=== PATIENT | male | born 1970 | race Caucasian/White ===

== ENCOUNTER 2016-02-21 15:08 | Emergency (ER) | payer BC ==
[2016-02-21 15:17] VITALS: RESP 18
--- NOTE | 2016-02-21 15:41 | ED ---
General Adult HPI - General Chief complaint: Back Pain/Injury Stated complaint: Shoulder/Back Pain Time Seen by Provider: 02/21/16 15:21 Source: patient, RN notes reviewed Mode of arrival: ambulatory Limitations: no limitations - History of Present Illness Initial comments: 46-year-old male presents emergency Department chief complaint right shoulder, back pain. Patient states this started yesterday. Patient states that is progressively gotten worse. Patient states that the chiropractor which initially helped with is not getting worse. Patient states his when he turns away from the right side. Patient states is unsure as he slipped on the lawn when he did. Patient states she is concerned as he has a history of V. tach in which she's had a defibrillator placed. 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 He shouldn't denies any chest pain, shortness breath, nausea, vomiting and diaphoretic episodes. Patient states he takes 81 mg aspirin daily. Patient states he has a family history of heart disease. - Related Data Home Medications Medication Instructions Recorded Confirmed Aspirin EC [Ecotrin Low Dose] 81 mg PO DAILY 02/21/16 02/21/16 Metoprolol Succinate (ER) [Toprol 100 mg PO DAILY 02/21/16 02/21/16 Xl] Allergies Allergy/AdvReac Type Severity Reaction Status Date / Time No Known Allergies Allergy Verified 02/21/16 15:31 Review of Systems ROS Statement: Those systems with pertinent positive or pertinent negative responses have been documented in the HPI. ROS Other: All systems not noted in ROS Statement are negative. Past Medical History Past Medical History: Hypertension History of Any Multi-Drug Resistant Organisms: None Reported Past Surgical History: No Surgical Hx Reported Additional Past Surgical History / Comment(s): ICD implant Past Psychological History: Anxiety Smoking Status: Never smoker Past Alcohol Use History: Rare Past Drug Use History: None Reported General Exam Limitations: no limitations General appearance: alert, in no apparent distress Head exam: Present: atraumatic, normocephalic, normal inspection ENT exam: Present: normal exam, normal oropharynx, mucous membranes moist, TM's normal bilaterally, normal external ear exam Neck exam: Present: normal inspection, tenderness (Moderate tenderness of the right trapezius), full ROM (Moderate discomfort when turning to the left). Absent: meningismus, lymphadenopathy Respiratory exam: Present: normal lung sounds bilaterally. Absent: respiratory distress, wheezes, rales, rhonchi, stridor Cardiovascular Exam: Present: regular rate, normal rhythm, normal heart sounds. Absent: systolic murmur, diastolic murmur, rubs, gallop, clicks Extremities exam: Present: normal inspection, full ROM, normal capillary refill. Absent: tenderness, pedal edema, joint swelling, calf tenderness Back exam: Present: full ROM Skin exam: Present: warm, dry, intact, normal color. Absent: rash Course Vital Signs 02/21/16 15:10 Temperature 99.1 F Pulse Rate 69 Respiratory 18 Rate Blood Pressure 165/91 O2 Sat by Pulse 99 Oximetry EKG Findings - EKG Comments: EKG Findings:: EKG performed at 15:32 normal sinus rhythm with a rate of 70, RI interval 146, QRS duration 80, QT/QTC 390/421 Medical Decision Making - Medical Decision Making 46-year-old male been for right trapezius pain. Patient lab work, EKG and chest x-ray with normal is. Patient's pain is muscle skeletal in nature. Patient will be discharged with heat, ice, anti-inflammatories. Patient was offered muscle relaxers and which she declined. - Lab Data Result diagrams: 02/21/16 15:52 02/21/16 15:52 Lab Results 02/21/16 02/21/16 02/21/16 Range/Units 15:52 15:52 15:52 WBC 6.3 (3.8-10.6) k/uL RBC 5.13 (4.30-5.90) m/uL Hgb 16.1 (13.0-17.5) gm/dL Hct 47.0 (39.0-53.0) % MCV 91.7 (80.0-100.0) fL MCH 31.3 (25.0-35.0) pg MCHC 34.2 (31.0-37.0) g/dL RDW 12.7 (11.5-15.5) % Plt Count 185 (150-450) k/uL Neutrophils % 64 % Lymphocytes % 24 % Monocytes % 7 % Eosinophils % 3 % Basophils % 0 % Neutrophils # 4.0 (1.3-7.7) k/uL Lymphocytes # 1.5 (1.0-4.8) k/uL Monocytes # 0.4 (0-1.0) k/uL Eosinophils # 0.2 (0-0.7) k/uL Basophils # 0.0 (0-0.2) k/uL PT (9.0-12.0) sec INR (<1.1) APTT (22.0-30.0) sec Sodium 141 (137-145) mmol/L Potassium 4.4 (3.5-5.1) mmol/L Chloride 108 H (98-107) mmol/L Carbon Dioxide 21 L (22-30) mmol/L Anion Gap 12 mmol/L BUN 16 (9-20) mg/dL Creatinine 0.50 L (0.66-1.25) mg/dL Est GFR (MDRD) Af Amer >60 (>60 ml/min/1.73 sqM) Est GFR (MDRD) Non-Af >60 (>60 ml/min/1.73 sqM) Glucose 139 H (74-99) mg/dL Calcium 9.4 (8.4-10.2) mg/dL Magnesium 1.7 (1.6-2.3) mg/dL Total Bilirubin 1.3 (0.2-1.3) mg/dL AST 73 H (17-59) U/L ALT 91 H (21-72) U/L Alkaline Phosphatase 55 (38-126) U/L Total Creatine Kinase 151 (55-170) U/L CK-MB (CK-2) 1.5 (0.0-2.4) ng/mL CK-MB (CK-2) Rel Index 1.0 Troponin I <0.012 (0.000-0.034) ng/mL Total Protein 7.3 (6.3-8.2) g/dL Albumin 4.4 (3.5-5.0) g/dL 02/21/16 Range/Units 15:52 WBC (3.8-10.6) k/uL RBC (4.30-5.90) m/uL Hgb (13.0-17.5) gm/dL Hct (39.0-53.0) % MCV (80.0-100.0) fL MCH (25.0-35.0) pg MCHC (31.0-37.0) g/dL RDW (11.5-15.5) % Plt Count (150-450) k/uL Neutrophils % % Lymphocytes % % Monocytes % % Eosinophils % % Basophils % % Neutrophils # (1.3-7.7) k/uL Lymphocytes # (1.0-4.8) k/uL Monocytes # (0-1.0) k/uL Eosinophils # (0-0.7) k/uL Basophils # (0-0.2) k/uL PT 11.6 (9.0-12.0) sec INR 1.2 (<1.1) APTT 25.3 (22.0-30.0) sec Sodium (137-145) mmol/L Potassium (3.5-5.1) mmol/L Chloride (98-107) mmol/L Carbon Dioxide (22-30) mmol/L Anion Gap mmol/L BUN (9-20) mg/dL Creatinine (0.66-1.25) mg/dL Est GFR (MDRD) Af Amer (>60 ml/min/1.73 sqM) Est GFR (MDRD) Non-Af (>60 ml/min/1.73 sqM) Glucose (74-99) mg/dL Calcium (8.4-10.2) mg/dL Magnesium (1.6-2.3) mg/dL Total Bilirubin (0.2-1.3) mg/dL AST (17-59) U/L ALT (21-72) U/L Alkaline Phosphatase (38-126) U/L Total Creatine Kinase (55-170) U/L CK-MB (CK-2) (0.0-2.4) ng/mL CK-MB (CK-2) Rel Index Troponin I (0.000-0.034) ng/mL Total Protein (6.3-8.2) g/dL Albumin (3.5-5.0) g/dL Disposition Clinical Impression: Trapezius muscle spasm, Strain of right trapezius muscle Disposition: HOME SELF-CARE Condition: Stable Instructions: Spasmodic Torticollis (ED) Additional Instructions: Please return to the Emergency Department if symptoms worsen or any other concerns. Time of Disposition: 16:57
[2016-02-21 16:02] LABS: Basophils % (A) 0 %; CH 32.2; CHCM 35.2; Eosinophils # (A) 0.2 k/uL (0-0.7); Eosinophils % (A) 3 %; HDW 2.57; HGB 16.1 gm/dL (13.0-17.5); Luc # (Auto) 0.18; Luc % (Auto) 3; Lymphocytes # (A) 1.5 k/uL (1.0-4.8); Lymphocytes % (A) 24 %; MCH 31.3 pg (25.0-35.0); MCHC 34.2 g/dL (31.0-37.0); MCV 91.7 fL (80.0-100.0); Mean Platelet Volume 6.9; Monocytes # (A) 0.4 k/uL (0-1.0); Monocytes % (A) 7 %; Neutrophils % (A) 64 %; RBC 5.13 m/uL (4.30-5.90); RDW 12.7 % (11.5-15.5); WBC 6.3 k/uL (3.8-10.6); WBC (Perox) 6.44
--- NOTE | 2016-02-21 16:07 | XR ---
EXAMINATION TYPE: XR chest 2V DATE OF EXAM: 02/21/2016 4:00 PM COMPARISON: 12/15/2014 HISTORY: Chest pain FINDINGS: The lungs are clear and there is no pneumothorax, pleural effusion, or focal pneumonia. Cardiac dev ice noted. The heart is enlarged. No overt failure. IMPRESSION: 1. No acute process.
[2016-02-21 16:10] LABS: INR 1.2 (<1.1); Partial Thromboplastin Time 25.3 sec (22.0-30.0); Prothrombin Time 11.6 sec (9.0-12.0)
[2016-02-21 16:16] LABS: ALT 91 U/L (21-72); AST 73 U/L (17-59); Alkaline Phosphatase 55 U/L (38-126); Anion Gap 12 mmol/L; Blood Urea Nitrogen 16 mg/dL (9-20); Calcium 9.4 mg/dL (8.4-10.2); Carbon Dioxide 21 mmol/L (22-30); Chloride 108 mmol/L (98-107); Glucose 139 mg/dL (74-99); Magnesium 1.7 mg/dL (1.6-2.3); Non-African American GFR(MDRD) >60 (>60 ml/min/1.73 sqM); Potassium 4.4 mmol/L (3.5-5.1); Sodium 141 mmol/L (137-145); Total Bilirubin 1.3 mg/dL (0.2-1.3); Total Protein 7.3 g/dL (6.3-8.2)
[2016-02-21 16:25] LABS: Creatine Kinase 151 U/L (55-170)
[2016-02-21 16:37] LABS: Creatine Kinase MB 1.5 ng/mL (0.0-2.4); Troponin I <0.012 ng/mL (0.000-0.034)
[2016-02-21 17:19] VITALS: BP 131/71; PULSE 58; TEMP 98
== END 2016-02-21 17:19 | disposition home or self-care (01) ==
LOC: EC 15:08
DX: S29.012A Strain of muscle and tendon of back wall of thorax, initial encounter (principal); I10 Essential (primary) hypertension; Z79.82 Long term (current) use of aspirin; Z82.49 Family history of ischemic heart disease and other diseases of the circulatory system; Z79.899 Other long term (current) drug therapy; Z95.810 Presence of automatic (implantable) cardiac defibrillator; X58.XXXA Exposure to other specified factors, initial encounter
CPT/HCPCS: 36415; 71020; 80053; 82550; 82553; 83735; 84484; 85025; 85610; 85730; 93005; 99284

== ENCOUNTER 2016-05-17 22:39 | Inpatient (IN) | payer BC ==
[2016-05-17] MEDS ORDERED: ENOXAPARIN 150 MG/ML SYRINGE SQ STA (23:10)
[2016-05-17] MEDS ORDERED: ASPIRIN 81 MG CHEW PO STA (23:10)
[2016-05-17 23:33] LABS: Basophils # (A) 0.1 k/uL (0-0.2); Basophils % (A) 1 %; CH 31.4; CHCM 34.9; Eosinophils # (A) 0.2 k/uL (0-0.7); Eosinophils % (A) 2 %; HCT 46.6 % (39.0-53.0); HDW 2.67; HGB 15.8 gm/dL (13.0-17.5); Luc % (Auto) 2; Lymphocytes # (A) 2.4 k/uL (1.0-4.8); Lymphocytes % (A) 28 %; MCH 30.7 pg (25.0-35.0); MCHC 33.9 g/dL (31.0-37.0); MCV 90.5 fL (80.0-100.0); Mean Platelet Volume 7.7; Monocytes # (A) 0.7 k/uL (0-1.0); Monocytes % (A) 8 %; Neutrophils # (A) 5.3 k/uL (1.3-7.7); Neutrophils % (A) 60 %; RBC 5.15 m/uL (4.30-5.90); RDW 12.1 % (11.5-15.5); WBC 8.8 k/uL (3.8-10.6); WBC (Perox) 8.85
[2016-05-17] MEDS ORDERED: DEXTROSE 5% IN WATER 100 ML with AMIODARONE 150 MG IV ONE (23:40)
[2016-05-17 23:42] LABS: ALT 59 U/L (21-72); AST 36 U/L (17-59); Alkaline Phosphatase 60 U/L (38-126); Anion Gap 12 mmol/L; Blood Urea Nitrogen 12 mg/dL (9-20); Calcium 9.6 mg/dL (8.4-10.2); Carbon Dioxide 26 mmol/L (22-30); Chloride 100 mmol/L (98-107); Glucose 307 mg/dL (74-99); Magnesium 1.8 mg/dL (1.6-2.3); Non-African American GFR(MDRD) >60 (>60 ml/min/1.73 sqM); Potassium 3.8 mmol/L (3.5-5.1); Sodium 138 mmol/L (137-145); Total Bilirubin 0.7 mg/dL (0.2-1.3); Total Protein 7.3 g/dL (6.3-8.2)
[2016-05-17 23:51] LABS: INR 1.1 (<1.1); Partial Thromboplastin Time 25.5 sec (22.0-30.0); Prothrombin Time 11.2 sec (9.0-12.0)
--- NOTE | 2016-05-17 23:52 | XR ---
EXAM: XR Chest, 1 View. CLINICAL HISTORY: Reason: dysrhythmia TECHNIQUE: Frontal view of the chest. COMPARISON: Chest radiograph on 02/21/2016 FINDINGS: Hardware: Left-sided pacemaker/AICD. Lungs/pleura: Mildly low lung volumes with left basilar atelectasis. No focal consolidation. No pleural effusion or pneumothorax. Heart/mediastinum: Stable mild cardiomegaly. Soft tissues: Unremarkable. Bones: Degenerative changes of the spine. No acute fracture. Upper abdomen: Unremarkable. IMPRESSION: Mildly low lung volumes with left basilar atelectasis. No acute disease.
[2016-05-18 00:07] LABS: Creatine Kinase MB 1.2 ng/mL (0.0-2.4); Troponin I 0.013 ng/mL (0.000-0.034)
[2016-05-18] MEDS ORDERED: NITROGLYCERIN SL TABS 0.4 MG TAB SUBLINGUAL PRN (00:40)
[2016-05-18] MEDS ORDERED: ALPRAZolam 0.25 MG TAB PO PRN (00:44)
[2016-05-18] MEDS ORDERED: MAGNESIUM SULFATE-D5W PMX 1 GM in DEXTROSE/WATER 1 100ML.BAG IVPB ONE (01:05)
[2016-05-18] MEDS ORDERED: POTASSIUM CHLORIDE ER 20 MEQ TAB.ER PO STA (01:05)
--- NOTE | 2016-05-18 01:06 | ED ---
Arrhythmia/Palpitations HPI - General Chief Complaint: Arrhythmia/Palpitations Stated Complaint: Heart Arrythmia Time Seen by Provider: 05/17/16 23:09 Source: patient Mode of arrival: ambulatory Limitations: no limitations - History of Present Illness Initial Comments: This patient is a 46-year-old man who presents to be evaluated for what he suspects are periods of ventricular tachycardia. The patient states that he does have a history of sustained ventricular tachycardia. He states it was discovered on nearly 2 years ago when he was having a stress test, and at the end of the test he entered sustained ventricular tachycardia. He subsequently had an AICD placed. The patient notes that over the past day or so he has been having more PVCs then he usually has. And then throughout the day he was having periods when he would feel short of breath and noted that his pulse was fast and he suspected he was in V. tach. These periods were short however they started recurring and he came to the emergency department to be evaluated. While here he use the bathroom in the waiting room and noted that he was extremely lightheaded like he was going to pass out and then his defibrillator discharged. Patient denies chest pain, diaphoresis, vomiting. MD Complaint: rapid heart beat, irregular heart beat -: hour(s) Context: occurred during rest Arrhythmia History: AICD Associated Symptoms: near-syncope - Related Data Home Medications Medication Instructions Recorded Confirmed Aspirin EC [Ecotrin Low Dose] 81 mg PO DAILY 02/21/16 05/17/16 Metoprolol Succinate (ER) [Toprol 100 mg PO DAILY 02/21/16 05/17/16 Xl] ALPRAZolam [Alprazolam] 0.25 mg PO TID PRN 05/17/16 05/17/16 Cefdinir [Omnicef] 600 mg PO DAILY 05/17/16 05/17/16 Ibuprofen [Advil] 400 mg PO Q6HR PRN 05/17/16 05/17/16 Allergies Allergy/AdvReac Type Severity Reaction Status Date / Time No Known Allergies Allergy Verified 05/17/16 23:14 Review of Systems ROS Statement: Those systems with pertinent positive or pertinent negative responses have been documented in the HPI. ROS Other: All systems not noted in ROS Statement are negative. Constitutional: Reports: weakness. Denies: fever, chills Respiratory: Reports: dyspnea. Denies: cough, wheezes, hemoptysis Cardiovascular: Reports: palpitations. Denies: chest pain, orthopnea, edema, syncope Gastrointestinal: Denies: abdominal pain, nausea, vomiting Genitourinary: Denies: dysuria, hematuria Musculoskeletal: Denies: back pain Skin: Denies: rash Neurological: Reports: weakness. Denies: headache, numbness Psychiatric: Reports: anxiety Past Medical History Past Medical History: Hypertension Additional Past Medical History / Comment(s): hypertrophic cardiomyopathy History of Any Multi-Drug Resistant Organisms: None Reported Past Surgical History: AICD Additional Past Surgical History / Comment(s): ICD implant Past Psychological History: Anxiety Smoking Status: Never smoker Past Alcohol Use History: Rare Past Drug Use History: None Reported - Past Family History Father Family Medical History: Cancer, Coronary Artery Disease (CAD), Hyperlipidemia, Myocardial Infarction ([place]) Additional Family Medical History / Comment(s): lymphoma Mother Family Medical History: Pulmonary Embolus, Renal Disease Brother(s) Family Medical History: Myocardial Infarction ([place]) General Exam Limitations: no limitations General appearance: alert, in no apparent distress, obese Head exam: Present: atraumatic, normocephalic Eye exam: Present: normal appearance. Absent: scleral icterus, conjunctival injection ENT exam: Present: normal oropharynx Neck exam: Present: normal inspection Respiratory exam: Present: normal lung sounds bilaterally. Absent: respiratory distress, wheezes, rales, rhonchi, stridor Cardiovascular Exam: Present: regular rate, normal rhythm, normal heart sounds. Absent: systolic murmur, diastolic murmur, rubs, gallop GI/Abdominal exam: Present: soft. Absent: distended, tenderness, guarding, rebound, rigid Extremities exam: Present: normal inspection, normal capillary refill. Absent: pedal edema, calf tenderness Back exam: Present: normal inspection. Absent: CVA tenderness (R), CVA tenderness (L) Neurological exam: Present: alert Skin exam: Present: warm, dry, intact, normal color. Absent: rash Course Vital Signs 05/17/16 05/17/16 05/18/16 22:50 23:06 00:06 Temperature 98.7 F 98 F 98 F Pulse Rate 85 80 84 Pulse Rate [ Real Estate Legal Secretary ] Respiratory 20 20 18 Rate Blood Pressure 159/80 159/75 151/70 Blood Pressure [Left Arm] O2 Sat by Pulse 98 98 99 Oximetry 04/01/17 04/01/17 04/01/17 00:07 00:42 01:14 Temperature 98 F 98.3 F Pulse Rate 80 Pulse Rate [ 80 75 Real Estate Legal Secretary ] Respiratory 18 12 Rate Blood Pressure 140/70 Blood Pressure 156/70 [Left Arm] O2 Sat by Pulse 97 97 Oximetry 05/18/16 01:30 Temperature 98.5 F Pulse Rate 82 Pulse Rate [ Real Estate Legal Secretary ] Respiratory 18 Rate Blood Pressure 142/74 Blood Pressure [Left Arm] O2 Sat by Pulse 97 Oximetry EKG Findings - EKG Results: EKG: interpreted by ANTHONY SALINAS, sinus rhythm (Rate 93 bpm), normal axis, normal QRS, normal ST/T, no acute changes Medical Decision Making - Medical Decision Making While in the emergency department, the patient's monitor showed to short intervals of V. tach approximately 5-6 beats each. Given that and the patient' s defibrillator discharge he was started on amiodarone. I discussed the patient 's case with cardiology and there treatment recommendations are incorporated. Remainder the patient's labs do show a borderline magnesium and potassium and these were supplemented. The patient did have no further episodes of arrhythmia while in the emergency department. - Lab Data Result diagrams: 05/18/16 04:57 05/18/16 04:57 Lab Results 05/17/16 05/17/16 05/17/16 Range/Units 23:04 23:04 23:04 WBC 8.8 (3.8-10.6) k/uL RBC 5.15 (4.30-5.90) m/uL Hgb 15.8 (13.0-17.5) gm/dL Hct 46.6 (39.0-53.0) % MCV 90.5 (80.0-100.0) fL MCH 30.7 (25.0-35.0) pg MCHC 33.9 (31.0-37.0) g/dL RDW 12.1 (11.5-15.5) % Plt Count 219 (150-450) k/uL Neutrophils % 60 % Lymphocytes % 28 % Monocytes % 8 % Eosinophils % 2 % Basophils % 1 % Neutrophils # 5.3 (1.3-7.7) k/uL Lymphocytes # 2.4 (1.0-4.8) k/uL Monocytes # 0.7 (0-1.0) k/uL Eosinophils # 0.2 (0-0.7) k/uL Basophils # 0.1 (0-0.2) k/uL PT (9.0-12.0) sec INR (<1.1) APTT (22.0-30.0) sec Sodium 138 (137-145) mmol/L Potassium 3.8 (3.5-5.1) mmol/L Chloride 100 (98-107) mmol/L Carbon Dioxide 26 (22-30) mmol/L Anion Gap 12 mmol/L BUN 12 (9-20) mg/dL Creatinine 0.59 L (0.66-1.25) mg/dL Est GFR (MDRD) Af Amer >60 (>60 ml/min/1.73 sqM) Est GFR (MDRD) Non-Af >60 (>60 ml/min/1.73 sqM) Glucose 307 H (74-99) mg/dL Calcium 9.6 (8.4-10.2) mg/dL Magnesium 1.8 (1.6-2.3) mg/dL Total Bilirubin 0.7 (0.2-1.3) mg/dL AST 36 (17-59) U/L ALT 59 (21-72) U/L Alkaline Phosphatase 60 (38-126) U/L Total Creatine Kinase 136 (55-170) U/L CK-MB (CK-2) 1.2 (0.0-2.4) ng/mL CK-MB (CK-2) Rel Index 0.9 Troponin I 0.013 (0.000-0.034) ng/mL Total Protein 7.3 (6.3-8.2) g/dL Albumin 4.2 (3.5-5.0) g/dL 05/17/16 Range/Units 23:04 WBC (3.8-10.6) k/uL RBC (4.30-5.90) m/uL Hgb (13.0-17.5) gm/dL Hct (39.0-53.0) % MCV (80.0-100.0) fL MCH (25.0-35.0) pg MCHC (31.0-37.0) g/dL RDW (11.5-15.5) % Plt Count (150-450) k/uL Neutrophils % % Lymphocytes % % Monocytes % % Eosinophils % % Basophils % % Neutrophils # (1.3-7.7) k/uL Lymphocytes # (1.0-4.8) k/uL Monocytes # (0-1.0) k/uL Eosinophils # (0-0.7) k/uL Basophils # (0-0.2) k/uL PT 11.2 (9.0-12.0) sec INR 1.1 (<1.1) APTT 25.5 (22.0-30.0) sec Sodium (137-145) mmol/L Potassium (3.5-5.1) mmol/L Chloride (98-107) mmol/L Carbon Dioxide (22-30) mmol/L Anion Gap mmol/L BUN (9-20) mg/dL Creatinine (0.66-1.25) mg/dL Est GFR (MDRD) Af Amer (>60 ml/min/1.73 sqM) Est GFR (MDRD) Non-Af (>60 ml/min/1.73 sqM) Glucose (74-99) mg/dL Calcium (8.4-10.2) mg/dL Magnesium (1.6-2.3) mg/dL Total Bilirubin (0.2-1.3) mg/dL AST (17-59) U/L ALT (21-72) U/L Alkaline Phosphatase (38-126) U/L Total Creatine Kinase (55-170) U/L CK-MB (CK-2) (0.0-2.4) ng/mL CK-MB (CK-2) Rel Index Troponin I (0.000-0.034) ng/mL Total Protein (6.3-8.2) g/dL Albumin (3.5-5.0) g/dL Critical Care Time Critical Care Time: Yes (35 minutes) Disposition Clinical Impression: Ventricular tachycardia, Defibrillator discharge Disposition: ADMITTED IP TO THIS [facility] Condition: Fair
[2016-05-18] MEDS ORDERED: INSULIN REGULAR 100 UNIT/ML VIAL SQ STA (01:07)
[2016-05-18 01:38] LABS: Glucose,Whole Blood 326 mg/dL (75-99)
[2016-05-18 02:08] VITALS: BMI 41.9
[2016-05-18] MEDS: AMIODARONE 450 MG in DEXTROSE 5% IN WATER 250 ML IV SCH ×8 (03:00→21:24)
[2016-05-18] MEDS ORDERED: DEXTROSE 5% IN WATER 100 ML with AMIODARONE 150 MG IV ONE (03:06)
[2016-05-18] MEDS ORDERED: LIDOCAINE 2% SYG (PF) 100 MG/5 ML ONE (03:20)
[2016-05-18] MEDS ORDERED: LIDOCAINE 2% SYG (PF) 100 MG/5 ML IV ONE (03:23)
[2016-05-18] MEDS ORDERED: METOPROLOL TARTRATE 50 MG TAB PO STA (03:24)
[2016-05-18] MEDS ORDERED: LIDOCAINE-D5W PMX 2G/500ML 4 MG/ML IV ONE (03:31)
[2016-05-18] MEDS: LIDOCAINE-D5W PMX 2G/500ML 2,000 MG in DEXTROSE/WATER 1 500ML.BAG IV SCH ×2 (03:34→21:57)
[2016-05-18 05:17] LABS: CH 31.3; CHCM 34.7; HCT 43.6 % (39.0-53.0); HDW 2.67; HGB 14.9 gm/dL (13.0-17.5); MCHC 34.2 g/dL (31.0-37.0); MCV 90.6 fL (80.0-100.0); RBC 4.81 m/uL (4.30-5.90); RDW 12.2 % (11.5-15.5); WBC 8.1 k/uL (3.8-10.6)
[2016-05-18 05:29] LABS: Anion Gap 11 mmol/L; Blood Urea Nitrogen 9 mg/dL (9-20); Calcium 9.1 mg/dL (8.4-10.2); Carbon Dioxide 21 mmol/L (22-30); Chloride 104 mmol/L (98-107); Glucose 266 mg/dL (74-99); Magnesium 1.9 mg/dL (1.6-2.3); Non-African American GFR(MDRD) >60 (>60 ml/min/1.73 sqM); Phosphorous 2.8 mg/dL (2.5-4.5); Potassium 4.8 mmol/L (3.5-5.1); Sodium 136 mmol/L (137-145)
[2016-05-18 05:48] LABS: Creatine Kinase MB 1.3 ng/mL (0.0-2.4); Troponin I 0.025 ng/mL (0.000-0.034)
[2016-05-18] MEDS ORDERED: Magnesium Replacement Protocol 1 EACH MISC MISCELLANE PRN (07:38)
[2016-05-18] MEDS: MAGNESIUM SULFATE-D5W PMX 1 GM in DEXTROSE/WATER 1 100ML.BAG IVPB SCH ×2 (07:47→08:55)
[2016-05-18] MEDS: INSULIN LISPRO (humaLOG) 300 UNIT/3 ML VIAL SQ SCH ×4 (07:48→20:33)
[2016-05-18] MEDS ORDERED: METOPROLOL SUCCINATE (ER) 100 MG TAB.ER.24H PO SCH (09:00)
[2016-05-18] MEDS ORDERED: NON-FORMULARY DRUG (Aspirin Ec 81 MG) PO SCH (09:00)
[2016-05-18 11:42] LABS: Creatine Kinase MB 1.2 ng/mL (0.0-2.4); Troponin I 0.015 ng/mL (0.000-0.034)
--- NOTE | 2016-05-18 12:22 | CONS ---
DATE OF CONSULTATION: Mr. Moura is a 46-year-old male with a history of ventricle arrhythmia and ventricular tachycardia status post ICD implantation done in January 2015 at [facility]. At that time apparently he had a stress test and toward the end of the stress test he had a run of ventricular tachycardia, underwent further workup and from what he was told there was evidence of septal hypertrophy and underwent an ICD implantation. The patient has occasional palpitation, has been maintained on a beta michell and has done reasonably well from the cardiac standpoint up to yesterday when he started to feel increased frequency in the palpitations and he has brief shortness of breath with it. He came into the emergency room and while in the emergency room before he was hooked to the monitor he had 2 discharges from his device, but no associated syncope. He was initiated on IV amiodarone and after admission to the ICU he persists in having short run of nonsustained VT and lidocaine was added with resolution of his arrhythmia. He is average in his exercise tolerance, has no significant dyspnea. Has no documented history of obstructive coronary artery disease. His stress tests in the past were unremarkable. He denies any chest discomfort. No peripheral edema. No PND. No orthopnea. He has no prior discharge from his device. 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 He had a recent upper respiratory infection and he was on antibiotics but did not take any decongestant. His coronary risk factors are negative for smoking. He is nondiabetic, not hyperlipidemic. His medications at home included metoprolol succinate 100 mg daily, ibuprofen on a p.r.n. basis, and aspirin once a day. REVIEW OF SYSTEMS: RESPIRATORY SYSTEM: He had a recent upper respiratory infection, that has improved. No recent wheezing. No history of obstructive lung disease. GI SYSTEM: No recent GI bleeding. No peptic ulcer disease. SYSTEM: No dysuria or hematuria. NERVOUS SYSTEM: No stroke or seizure. SOCIAL HISTORY: No history of alcohol intake. He uses caffeine but not to excess. PHYSICAL EXAMINATION: He is a 46-year-old male, alert, oriented, in no apparent distress. Blood pressure 140/70 with the heart rate in the 60s. HEAD: Normocephalic. EYES: Sclerae anicteric. NECK: Good upstroke. No bruit. No jugular venous distention. LUNGS: Clear to auscultation. HEART: Regular rate and rhythm. S1, S2, no S3, no rub appreciated with soft systolic murmur. No diastolic murmur. ABDOMEN: Soft, nontender, obese. Positive bowel sounds. No organomegaly. EXTREMITIES: No edema. Intact distal pulses. Lab data on presentation showed his potassium was 3.8, it is 4.8 today. His initial magnesium 1.8 up to 1.9. Troponin 0.013 and 0.025. Hemoglobin of 14.9. His EKG revealed sinus mechanism, normal axis and intervals with minor nonspecific ST-T wave changes. Chest x-ray shows no acute infiltrate. IMPRESSION: 1. Discharge from ICD for possible ventricular tachycardia/ventricular fibrillation. The arrhythmia during that time is not available to me yet. Patient was not on the monitor. 2. Possible hypertrophic cardiomyopathy, although prior workup is not available. 3. Recent upper respiratory infection, improved. RECOMMENDATIONS: I will obtain interrogation of his device. I will obtain an echocardiogram with Doppler. I will also continue on the IV amiodarone, IV lidocaine at this point. I will obtain the input of Dr. Priest regarding his care to see if we need to switch him to mexiletine orally, I will continue on a beta michell at this time. Patient will require further evaluation to see if he is a candidate for ventricular ectopic activity ablation. I have discussed those findings with the patient. Thank you for this consult. We will follow with you.
[2016-05-18 12:26] LABS: Glucose,Whole Blood 147 mg/dL (75-99)
[2016-05-18 12:48] LABS: Hemoglobin A1C 7.5 % (4.2-6.1)
[2016-05-18] MEDS: metFORMIN 500 MG TAB PO SCH ×2 (12:50→17:41)
--- NOTE | 2016-05-18 15:25 | HP ---
DATE OF ADMISSION: HISTORY AND PHYSICAL AND DISCHARGE SUMMARY Patient is a 46-year-old gentleman with history of ventricular tachycardia in the past and has AICD implantation at [facility] because of his tachycardia. Patient has hypertrophic obstructive cardiomyopathy and patient is on beta michell and patient started having episodes of palpitations without any shortness of breath or chest pain. Came to ER, found to have frequent PVCs. In the meantime, the patient had an AICD that discharged twice and had a short run of nonsustained VT. Patient denied any shortness of breath. The patient was evaluated by Cardiology and they are recommending lidocaine and amiodarone. Patient is on both of these drips and Dr. Priest is going to evaluate the patient. REVIEW OF SYSTEMS: CONSTITUTIONAL: No fever, no malaise, no fatigue. HEENT: No recent visual problems or hearing problems. Denied any sore throat. CARDIOVASCULAR: As described in HPI. PULMONARY: No shortness of breath, no cough, no hemoptysis. GASTROINTESTINAL: No diarrhea, no nausea, no vomiting, no abdominal pain. Normoactive bowel sounds. NEUROLOGICAL: No headaches, no weakness, no numbness. HEMATOLOGICAL: Denies any bleeding or petechiae. GENITOURINARY: Denies any burning micturition, frequency, or urgency. MUSCULOSKELETAL/RHEUMATOLOGICAL: Denies any joint pain, swelling, or any muscle pain. ENDOCRINE: Denies any polyuria or polydipsia. The rest of the 14 point review of systems is negative. HOME MEDICATIONS: 1. Metoprolol. 2. Omnicef. 3. Aspirin. 4. Alprazolam. 5. Ibuprofen. Not sure why patient is taking antibiotics. Past medical history is significant for hypertension, hypertrophic obstructive cardiomyopathy, nonsustained VT episodes in the past and probable diabetes mellitus. Patient's outside hemoglobin A1c is 7.1. We are obtaining a hemoglobin A1c again here. Patient's blood sugars are elevated even before he was started on lidocaine drip and amiodarone drip, which are in D5. The patient has an AICD implantation in the past. Anxiety disorder. FAMILY HISTORY: Sig for coronary artery disease, hyperlipidemia, cancers in the family and lymphoma in the family. PHYSICAL EXAMINATION: Temperature 97.5, pulse of 62, respiratory rate of 18, blood pressure is 151/79, saturating at 95% on room air. GENERAL: The patient is alert and oriented x3, not in any acute distress. Well developed, well nourished. HEENT: Pupils are round and equally reacting to light. EOMI. No scleral icterus. No conjunctival pallor. Normocephalic, atraumatic. No pharyngeal erythema. No thyromegaly. CARDIOVASCULAR: S1 and S2 present. No murmurs, rubs, or gallops. PULMONARY: Chest is clear to auscultation, no wheezing or crackles. ABDOMEN: Soft, nontender, nondistended, normoactive bowel sounds. No palpable organomegaly. MUSCULOSKELETAL: No joint swelling or deformity. EXTREMITIES: No cyanosis, clubbing, or pedal edema. NEUROLOGICAL: Gross neurological examination did not reveal any focal deficits. SKIN: No rashes. LABORATORY DATA: CBC, CMP within normal limits except for elevated blood sugars. ASSESSMENT AND PLAN: 1. Episode of nonsustained ventricular tachycardia with discharge from AICD. Patient will undergo AICD evaluation and Dr. Priest will evaluate the patient because of the high frequency of these premature ventricular contractions leading to frequent discharges from AICD. Patient will be continued on beta michell. 2. Hypertrophic obstructive cardiomyopathy. 3. Diabetes mellitus type 2. Patient will be initiated on metformin. 4. Obesity. Counseling was provided. After evaluation Dr. Priest, if Dr. Priest clears him, patient will be discharged on diabetic and cardiac diet. Activity as tolerated. Patient will follow with his primary physician in 2 to 3 days and crew attendant as scheduled.
[2016-05-18 17:14] LABS: Glucose,Whole Blood 123 mg/dL (75-99)
[2016-05-18] MEDS: ALPRAZolam 0.5 MG TAB PO PRN (17:20)
--- NOTE | 2016-05-18 18:02 | ECHOF ---
Referral Reason:Cardiomyopathy/AICD firing MEASUREMENTS -------- HEIGHT: 182.9 cm WEIGHT: 127.0 kg BP: RVIDd: 4.0 cm (< 3.3) IVSd: 2.0 cm (0.6 - 1.1) LVIDd: 4.4 cm (3.9 - 5.3) LVPWd: 1.4 cm (0.6 - 1.1) IVSs: 2.4 cm LVIDs: 3.3 cm LVPWs: 1.5 cm LA Diam: 4.4 cm (2.7 - 3.8) Ao Diam: 3.5 cm (2.0 - 3.7) AV Cusp: 2.3 cm (1.5 - 2.6) LA Diam: 3.9 cm (2.7 - 3.8) MV EXCURSION: 20.607 mm (> 18.000) MV EF SLOPE: 73 mm/s (70 - 150) EPSS: 0.5 cm MV E Vin: 0.71 m/s MV DecT: 201 ms MV A Vin: 0.48 m/s MV E/A Ratio: 1.48 RAP: 5.00 mmHg RVSP: 37.09 mmHg FINDINGS -------- Pacerwire seen in RV and RA. This was a technically difficult study with suboptimal views. Morbid Obesity The left ventricular size is normal. There is severe concentric left ventricular hypertrophy. Overall left ventricular systolic function is normal with, an EF between 55 - 60 %. The right ventricle is normal in size. The left atrium is mildly dilated. The right atrial size is normal. 1.5MG OF DEFINITY UTLIZED: 2 OR MORE WALL SEGMENTS NOT VISUALIZED. The aortic valve is trileaflet, and appears structurally normal. No aortic stenosis or regurgitation. The mitral valve is normal. Mild mitral regurgitation is present. Mild tricuspid regurgitation present. There is mild pulmonary hypertension. The right ventricular systolic pressure, as measured by Doppler, is 37.09mmHg. The pulmonic valve was not well visualized. There is no pulmonic regurgitation present. The aortic root size is normal. There is no pericardial effusion. CONCLUSIONS -------- 1. Pacerwire seen in RV and RA. 2. There is no pulmonic regurgitation present. 3. There is no pericardial effusion. 4. There is severe concentric left ventricular hypertrophy. 5. The left atrium is mildly dilated. 6. 1.5MG OF DEFINITY UTLIZED: 2 OR MORE WALL SEGMENTS NOT VISUALIZED. 7. The aortic valve is trileaflet, and appears structurally normal. No aortic stenosis or regurgitation. 8. Mild mitral regurgitation is present. 9. Mild tricuspid regurgitation present. 10. There is mild pulmonary hypertension. 11. The right ventricular systolic pressure, as measured by Doppler, is 37.09mmHg. SIGHT MOUNTER: Raven Vilchis RDCS
[2016-05-18] MEDS ORDERED: METOPROLOL SUCCINATE (ER) 50 MG TAB.ER.24H PO STA (18:53)
[2016-05-18 20:35] LABS: Glucose,Whole Blood 152 mg/dL (75-99)
--- NOTE | 2016-05-18 22:00 | P.PN ---
Progress Note - Text Single chamber ICD was interrogated and then reprogrammed 46-year-old Patient was admitted with salvos of ventricular tachycardia mostly monomorphic VT with short cycle length, rapid despite being on Toprol XL 100 mg by mouth daily and is compliant with medical treatment. While she complained of palpitations and did not feel right he did NOT have an episode of loss of consciousness. He was treated with IV amiodarone and later IV lidocaine Thresholds within normal limits RV sensing with normal limits Impedances were normal limits He follows with [facility] with Dr. Anderson His indication for defibrillator was hypertrophic cardio myopathy and he has also had exercise induced ventricular tachycardia He was originally programmed to single zone at 180 beats a minute with 1 round of ATP followed by shocks at 41 J His single chamber ICD was reprogrammed according to the MADIT RIT programming VT 1 zone at 175 beats a minute, 60 seconds detection VT to zone at 210 beats a minute 12 seconds detection VF zone 240 beats a minute, 5 second detection Appropriate antitachycardia pacing programmed according to MAD[employer] programming Plan Since he has exercise induced ventricular tachycardia in the past, I will increase the dose of Toprol to 200 mg by mouth daily Tomorrow we will taper off amiodarone and lidocaine
[2016-05-19] MEDS ORDERED: ACETAMINOPHEN TAB 325 MG TAB PO PRN (02:28)
[2016-05-19] MEDS: ALPRAZolam 0.5 MG TAB PO PRN ×2 (02:40→23:10)
[2016-05-19 05:13] LABS: Anion Gap 9 mmol/L; Blood Urea Nitrogen 10 mg/dL (9-20); Calcium 8.8 mg/dL (8.4-10.2); Carbon Dioxide 24 mmol/L (22-30); Chloride 104 mmol/L (98-107); Cholesterol 100 mg/dL (<200); Glucose 153 mg/dL (74-99); HDL Cholesterol 29 mg/dL (40-60); Magnesium 1.9 mg/dL (1.6-2.3); Non-African American GFR(MDRD) >60 (>60 ml/min/1.73 sqM); Potassium 4.7 mmol/L (3.5-5.1); Sodium 137 mmol/L (137-145); Triglycerides 122 mg/dL (<150)
[2016-05-19] MEDS ORDERED: Magnesium Replacement Protocol 1 EACH MISC MISCELLANE PRN (05:30)
[2016-05-19] MEDS: MAGNESIUM SULFATE-D5W PMX 1 GM in DEXTROSE/WATER 1 100ML.BAG IVPB SCH ×2 (05:43→07:53)
[2016-05-19] MEDS: AMIODARONE 450 MG in DEXTROSE 5% IN WATER 250 ML IV SCH ×4 (06:27→08:05)
[2016-05-19] MEDS: INSULIN LISPRO (humaLOG) 300 UNIT/3 ML VIAL SQ SCH ×4 (07:56→20:28)
[2016-05-19 07:57] LABS: Glucose,Whole Blood 183 mg/dL (75-99)
[2016-05-19] MEDS: ASPIRIN 325 MG TAB PO SCH (07:58)
[2016-05-19] MEDS: metFORMIN 500 MG TAB PO SCH ×2 (07:58→17:05)
[2016-05-19] MEDS: METOPROLOL SUCCINATE (ER) 100 MG TAB.ER.24H PO SCH (07:59)
[2016-05-19 12:14] LABS: Glucose,Whole Blood 171 mg/dL (75-99)
--- NOTE | 2016-05-19 15:42 | PN ---
Mr. Moura is a 46-year-old male with known history of ventricular tachycardia status post ICD implant who presented with discharge from the device. He is doing quite well this morning. He is off his lidocaine. His beta michell dose was increased. He had an echocardiogram revealed severe global left ventricular hypertrophy. He denies any dizziness or palpitation. He denies any nausea. He continues to be on metoprolol succinate 200 mg daily. PHYSICAL EXAMINATION: Blood pressure 131/60 with a heart in the 50s. LUNGS: Clear. HEART: Regular rate and rhythm. S1, S2 with systolic murmur. No diastolic murmur. No rub. ABDOMEN: Soft, nontender. EXTREMITIES: No edema. Lab data revealed BUN and creatinine 10 and 0.6. Potassium 4.7. His cholesterol is 100 with an LDL of 47. IMPRESSION: 1. Ventricular tachycardia with discharge from the device. 2. Left ventricular hypertrophy. 3. Recent upper respiratory infection, resolved. RECOMMENDATIONS: From the cardiac standpoint, I will stop the amiodarone, increase his level of activity. If he remains stable, and has no further symptoms, then I expect he should be able to be discharged home tomorrow and be admitted as an outpatient to undergo EP study and ablation.
--- NOTE | 2016-05-19 15:44 | P.CRDCN ---
History of Present Illness Chief complaint: Rec. VT History of present illness: Asked by Dr. Dr. Tadeo to see this 46-year-old male patient who follows at [facility] with Dr. Ramirez and Dr. Anderson 46-year-old male patient who came in complaining of palpitations and feeling weak. He has known PVCs and ventricular tachycardia and upon admission stated that he was having more PVCs and tachycardia. In the waiting room he went to use the bathroom and became very lightheaded and felt he was on a pass out and felt his defibrillator discharge. No chest discomfort prior to that Past history of Exercise induced ventricular tachycardia He carries a diagnosis of hypertrophic cardio myopathy I reviewed his MRI report from the [facility] hospital ICD implant Medication list was reviewed Review of systems: No fever chills or rigors, no cough, phlegm or expectoration , no nausea, vomiting or diarrhea, no hematuria, dysuria, no musculoskeletal complaints, no strokes or seizures, no skin lesions. He complained that he received 2 ICD shocks On examination, heart rate in the 50s, afebrile, normal respirations, blood pressure 123/61 mmHg Increased BMI of 42 No JVD no thyromegaly Breath sounds are normal no rhonchi no crackles Normal heart sounds. I don't appreciate a harsh ejection systolic murmur Abdomen is soft nontender 70s warm no edema Labs are reviewed electrolytes are normal LDL 47 Impression ICD strips were reviewed and show some dose of ventricular tachycardia, fast 2 ICD discharges but the tachycardia continued because it was paroxysmal and recurrent 2 other occasions when the defibrillator charged but did not defibrillate the patient 2-D echo was reviewed, patient has been diagnosed with hypertrophic cardio myopathy Multiple family members had genetic testing performed Multiple family members have frequent RVOT PVCs In the emergency and the patient continued to have runs of nonsustained ventricular tachycardia and frequent PVCs. I don't have a twelve-lead ECG documenting this but on telemetry it appears to be a left bundle branch block morphology with an upright QRS in lead 2. This is similar to the morphology in other family members and I'm taking care of his relatives with the same PVC morphology BMI 42 Diabetes, on metformin Suggest Increase the dose of Toprol to 200 mg by mouth daily Taper off lidocaine and stop amiodarone IV I have recommended that he see his communications professional at [facility] and proceed with an EP study and radio frequency ablation for symptomatic ventricular tachycardia, refractory to 100 mg of Toprol-XL TSH level Diabetes management and preventative management of future cardio vascular complications of diabetes, per primary team Past Medical History Past Medical History: Hypertension Additional Past Medical History / Comment(s): hypertrophic cardiomyopathy History of Any Multi-Drug Resistant Organisms: None Reported Past Surgical History: AICD Additional Past Surgical History / Comment(s): ICD implant Type of Cardiac Device: AICD Device Placement Date:: 2014 Past Psychological History: Anxiety Smoking Status: Never smoker Past Alcohol Use History: Rare Past Drug Use History: None Reported - Past Family History Father Family Medical History: Cancer, Coronary Artery Disease (CAD), Hyperlipidemia, Myocardial Infarction (ND) Additional Family Medical History / Comment(s): lymphoma Mother Family Medical History: Pulmonary Embolus, Renal Disease Brother(s) Family Medical History: Myocardial Infarction (ND) Medications and Allergies Home Medications Medication Instructions Recorded Confirmed Type Aspirin EC [Ecotrin Low Dose] 81 mg PO DAILY 02/21/16 05/17/16 History ALPRAZolam [Alprazolam] 0.5 mg PO TID PRN 05/17/16 05/18/16 History Ibuprofen [Advil] 400 mg PO Q6HR PRN 05/17/16 05/17/16 History Allergies Allergy/AdvReac Type Severity Reaction Status Date / Time No Known Allergies Allergy Verified 05/17/16 23:14 Physical Exam Vitals: Vital Signs Temp Pulse Pulse Resp BP BP Pulse Ox 05/19/16 12:00 97.5 F L 54 L 18 131/65 99 05/19/16 07:52 98.3 F 53 L 17 123/61 98 05/19/16 04:00 97.6 F 55 L 75 17 134/72 96 05/19/16 02:00 53 L 18 05/19/16 00:00 98.7 F 55 L 75 19 114/65 96 05/18/16 22:00 57 L 28 H 135/67 05/18/16 20:55 61 63 H 139/74 05/18/16 20:00 63 75 25 H 147/81 05/18/16 18:00 97.8 F 62 22 140/80 95 05/18/16 16:00 98.1 F 57 L 18 142/79 96 Intake and Output 05/19/16 05/19/16 05/19/16 06:59 14:59 22:59 Intake Total 419 56.399 Output Total 400 Balance 419 -343.601 Intake: IV 160 Normal Saline 0.9% 160 Intake, IV Titration 259 56.399 Amount Amiodarone 450 mg In 259 56.399 Dextrose 5% in Water 250 ml @ 0.5 MG/MIN 17.26 mls /hr IV .Q15H1M [facility] Rx#: [id number] Output: Urine 400 Other: Voiding Method Urinal Toilet Urinal Results 05/18/16 04:57 05/19/16 04:34 Lipids 05/19/16 Range/Units 04:34 Triglycerides 122 (<150) mg/dL Cholesterol 100 (<200) mg/dL HDL Cholesterol 29 L (40-60) mg/dL Comprehensive Metabolic Panel 05/19/16 Range/Units 04:34 Sodium 137 (137-145) mmol/L Potassium 4.7 (3.5-5.1) mmol/L Chloride 104 (98-107) mmol/L Carbon Dioxide 24 (22-30) mmol/L BUN 10 (9-20) mg/dL Creatinine 0.62 L (0.66-1.25) mg/dL Glucose 153 H (74-99) mg/dL Calcium 8.8 (8.4-10.2) mg/dL Current Medications Generic Name Dose Route Start Last Admin Trade Name Freq PRN Reason Stop Dose Admin Acetaminophen 650 mg 05/19/16 02:28 05/19/16 02:36 Tylenol Tab PO 650 mg Q6HR PRN Administration Fever and/ or Pain Alprazolam 0.5 mg 05/18/16 16:51 05/19/16 02:40 Xanax PO 0.5 mg TID PRN Administration Anxiety Aspirin 325 mg 05/19/16 09:00 05/19/16 07:58 Aspirin PO 325 mg DAILY HEIDI Administration Insulin Human Lispro 0 unit 05/18/16 07:30 05/19/16 12:15 Humalog SQ 2 unit ACHS HEIDI Administration Protocol Metformin HCl 500 mg 05/18/16 12:30 05/19/16 07:58 Glucophage PO 250 mg BID-W/MEALS HEDII Administration Metoprolol Succinate 200 mg 05/19/16 09:00 05/19/16 07:59 Toprol Xl PO 200 mg DAILY HEIDI Administration Miscellaneous Information 1 each 05/18/16 07:38 Magnesium Per Protocol MISCELLANE DAILY PRN Per Protocol Protocol Miscellaneous Information 1 each 05/19/16 05:30 Magnesium Per Protocol MISCELLANE DAILY PRN Per Protocol Protocol Nitroglycerin 0.4 mg 05/18/16 00:40 Nitrostat SUBLINGUAL Q5M PRN Chest Pain Intake and Output 05/19/16 05/19/16 05/19/16 06:59 14:59 22:59 Intake Total 419 56.399 Output Total 400 Balance 419 -343.601 Intake: IV 160 Normal Saline 0.9% 160 Intake, IV Titration 259 56.399 Amount Amiodarone 450 mg In 259 56.399 Dextrose 5% in Water 250 ml @ 0.5 MG/MIN 17.26 mls /hr IV .Q15H1M HEIDI Rx#: [id number] Output: Urine 400 Other: Voiding Method Urinal Toilet Urinal 05/18/16 04:57 05/19/16 04:34
--- NOTE | 2016-05-19 15:50 | PN ---
Patient is admitted secondary to possible V. tach and discharge from the ICD and electrophysiology evaluated the patient and they are recommending tapering off of lidocaine and amiodarone and Toprol-XL dose increased to 200 daily which is a sustained release. If patient is cleared by Cardiology, patient will be discharged today. Patient may stay here for monitoring after discontinuation of these 2 medications. REVIEW OF SYSTEMS: CARDIOVASCULAR: No chest pain, no orthopnea, no PND, no palpitations. PULMONARY: Denied any shortness of breath. No cough or hemoptysis. GASTROINTESTINAL: No diarrhea, nausea or vomiting. No abdominal pain. Normoactive bowel sounds. NEUROLOGIC: No headaches, no weakness, no numbness. Medications were reviewed. PHYSICAL EXAMINATION: VITAL SIGNS: Temperature 97.5, pulse of 54, respiratory rate of 18, blood pressure 131/65, saturating at 99% on room air. GENERAL: The patient is alert and oriented x3, not in any acute distress. Well developed, well nourished. HEENT: Pupils are round and equally reacting to light. EOMI. No scleral icterus. No conjunctival pallor. Normocephalic, atraumatic. No pharyngeal erythema. No thyromegaly. CARDIOVASCULAR: S1 and S2 present. No murmurs, rubs, or gallops. PULMONARY: Chest is clear to auscultation, no wheezing or crackles. ABDOMEN: Soft, nontender, nondistended, normoactive bowel sounds. No palpable organomegaly. MUSCULOSKELETAL: No joint swelling or deformity. EXTREMITIES: No cyanosis, clubbing, or pedal edema. NEUROLOGICAL: Gross neurological examination did not reveal any focal deficits. SKIN: No rashes. LABORATORY DATA: Basic metabolic profile is essentially within normal limits. ASSESSMENT AND PLAN: 1. An episode of ventricular tachycardia, possibly leading to AICD discharge. 2. Hypertrophic obstructive cardiomyopathy. 3. Type 2 diabetes mellitus. 4. Obesity. PLAN: If patient is cleared by Cardiology patient will be discharged, but they may want him to stay for monitoring for at least at 12 hours after discontinuation of above-mentioned medications. Patient's hemoglobin A1c is 7.5. Please refer to my depart summary for further details of discharge medications if he is discharged. Patient will follow Dr. Juan Alberto Guadarrama in 3 to 7 days if he is discharged and follow with Dr. Priest as scheduled. This dictation is both progress note and discharge summary.
[2016-05-19 17:06] LABS: Glucose,Whole Blood 101 mg/dL (75-99)
[2016-05-19 20:26] LABS: Glucose,Whole Blood 158 mg/dL (75-99)
[2016-05-20 04:53] LABS: Anion Gap 10 mmol/L; Blood Urea Nitrogen 12 mg/dL (9-20); Calcium 9.1 mg/dL (8.4-10.2); Carbon Dioxide 22 mmol/L (22-30); Chloride 105 mmol/L (98-107); Glucose 138 mg/dL (74-99); Magnesium 1.9 mg/dL (1.6-2.3); Non-African American GFR(MDRD) >60 (>60 ml/min/1.73 sqM); Potassium 4.5 mmol/L (3.5-5.1); Sodium 137 mmol/L (137-145)
[2016-05-20] MEDS ORDERED: Magnesium Replacement Protocol 1 EACH MISC MISCELLANE PRN (05:37)
[2016-05-20 07:35] LABS: Glucose,Whole Blood 153 mg/dL (75-99)
[2016-05-20] MEDS: MAGNESIUM SULFATE-D5W PMX 1 GM in DEXTROSE/WATER 1 100ML.BAG IVPB SCH ×2 (08:05→09:08)
[2016-05-20] MEDS: metFORMIN 500 MG TAB PO SCH (08:10)
[2016-05-20] MEDS: INSULIN LISPRO (humaLOG) 300 UNIT/3 ML VIAL SQ SCH (08:11)
[2016-05-20] MEDS: METOPROLOL SUCCINATE (ER) 100 MG TAB.ER.24H PO SCH (08:11)
[2016-05-20] MEDS: ASPIRIN 325 MG TAB PO SCH (08:11)
[2016-05-20 08:50] VITALS: BP 149/76; PULSE 53; RESP 15; TEMP 97.4
[2016-05-20] MEDS ORDERED: ASPIRIN 81 MG CHEW PO SCH (09:30)
--- NOTE | 2016-05-20 15:58 | PN ---
Mr. Moura is a 46-year-old male who presented with recurrent ventricular tachycardia and discharge from his device. He is feeling well. He has not had any further episodes of arrhythmia. He is off the amiodarone and the lidocaine for 24 hours at this time. Hemodynamically he continues to be stable. He denies any chest pain. No dizziness or palpitation. He continues to be on metoprolol succinate 200 mg daily and aspirin once a day. PHYSICAL EXAMINATION: Blood pressure 149/70 with a heart rate in the 50s. LUNGS: Clear. HEART: Regular rate and rhythm. S1, S2. No S3. No rub, with a soft systolic murmur. ABDOMEN: Soft, obese, nontender. EXTREMITIES: No edema. Lab data revealed BUN and creatinine of 12 and 0.7, magnesium of 1.9. IMPRESSION: 1. Recurrent ventricular tachycardia, status post implantable cardioverter-defibrillator, stabilized. 2. History of left ventricular hypertrophy, although his echocardiogram does not show clear obstructive hypertrophic cardiomyopathy. RECOMMENDATION: Patient will be discharged home today. He has elected to undergo the ablation by Dr. Priest. He will be scheduled as an outpatient in the next few weeks. In the meantime, he will continue the rest of his medical regimen.
[2016-05-21] MEDS ORDERED: ASPIRIN 81 MG CHEW PO SCH (09:00)
--- NOTE | 2016-05-21 20:34 | DS ---
DATE OF ADMISSION: 05/18/2016 DATE OF DISCHARGE: 05/20/2016 Patient is admitted for possible V-tach patient and discharged with AICD. Patient is clinically doing well and patient is ( ) Toprol-XL 200 mg daily. Patient will follow with Dr. Juan Alberto Guadarrama as an outpatient. The patient was seen and examined on het day of discharge. PHYSICAL EXAMINATION: GENERAL: The patient is alert and oriented x3, not in any acute distress. Well developed, well nourished. HEENT: Pupils are round and equally reacting to light. EOMI. No scleral icterus. No conjunctival pallor. Normocephalic, atraumatic. No pharyngeal erythema. No thyromegaly. CARDIOVASCULAR: S1 and S2 present. No murmurs, rubs, or gallops. PULMONARY: Chest is clear to auscultation, no wheezing or crackles. ABDOMEN: Soft, nontender, nondistended, normoactive bowel sounds. No palpable organomegaly. MUSCULOSKELETAL: No joint swelling or deformity. EXTREMITIES: No cyanosis, clubbing, or pedal edema. NEUROLOGICAL: Gross neurological examination did not reveal any focal deficits. SKIN: No rashes. FINAL DIAGNOSES: 1. Episode of ventricular tachycardia. Patient already has an automatic implantable cardioverter-defibrillator. 2. Obstructive cardiomyopathy. 3. Type 2 diabetes mellitus. The patient was initiated on metformin. 4. Obesity. Patient is being discharged in stable condition to home. Activity as tolerated. Cardiac and diabetic 1800 calorie diet. Followups as mentioned above. Spent greater than 35 minutes in total discharge process.
== END 2016-05-20 11:42 | disposition home or self-care (01) | DRG 309 ==
LOC: EC 22:39 → 6ICU 05-18 00:41
PROVIDERS: ADMIT Hospitalist; ATTEND Hospitalist
DX: I47.2 Ventricular tachycardia (principal); I42.1 Obstructive hypertrophic cardiomyopathy; I10 Essential (primary) hypertension; E11.9 Type 2 diabetes mellitus without complications; E66.9 Obesity, unspecified; F41.9 Anxiety disorder, unspecified; I49.3 Ventricular premature depolarization; Z95.810 Presence of automatic (implantable) cardiac defibrillator; Z82.49 Family history of ischemic heart disease and other diseases of the circulatory system
CPT/HCPCS: 36415; 71010; 80048; 80053; 80061; 82550; 82553; 83036; 83735; 84100; 84443; 84484; 85025; 85027; 85610; 85730; 93005; 93306; 99291

== ENCOUNTER 2016-06-08 20:28 | Emergency (ER) | payer BC ==
[2016-06-08 22:02] VITALS: RESP 16
--- NOTE | 2016-06-08 22:02 | ED ---
General Adult HPI - General Chief complaint: Arrhythmia/Palpitations Stated complaint: arrhythmia Time Seen by Provider: 06/08/16 21:00 Source: patient, RN notes reviewed Mode of arrival: wheelchair Limitations: no limitations - History of Present Illness Initial comments: 46-year-old male who has a history of V. tach he is currently scheduled for an EPS study with ablation on Friday. Patient states he has an ICD in place. Patient also states that he has been told to take no more medication so that he can get ablated on Friday. Patient states today at home he started feeling heart racing and got worse and worse and he got to a point where it made him nervous and he was afraid he'll go to be toxic came to the hospital. Patient states he took a Xanax prior to arrival. Patient denies any chest pain patient denies shortness of breath or difficulty breathing. Patient denies any recent fever chills or cough per patient denies any abdominal pain. Patient denies any nausea vomiting diarrhea. Patient denies any syncopal episode or near syncopal episode. Patient denies any calf pain or leg swelling. - Related Data Home Medications Medication Instructions Recorded Confirmed Aspirin EC [Ecotrin Low Dose] 81 mg PO DAILY 02/21/16 06/08/16 ALPRAZolam [Alprazolam] 0.5 mg PO TID PRN 05/17/16 06/08/16 Metoprolol Succinate (ER) [Toprol 100 mg PO DIRECTED 06/07/16 06/08/16 XL] Previous Rx's Medication Instructions Recorded metFORMIN HCL [Glucophage] 500 mg PO BID #60 tab 05/19/16 Allergies Allergy/AdvReac Type Severity Reaction Status Date / Time No Known Allergies Allergy Verified 06/08/16 20:39 Review of Systems ROS Statement: Those systems with pertinent positive or pertinent negative responses have been documented in the HPI. ROS Other: All systems not noted in ROS Statement are negative. Past Medical History Past Medical History: Diabetes Mellitus, Hypertension Additional Past Medical History / Comment(s): hypertrophic cardiomyopathy, see Dr Priest H & P History of Any Multi-Drug Resistant Organisms: None Reported Past Surgical History: AICD Additional Past Surgical History / Comment(s): ICD implant Past Anesthesia/Blood Transfusion Reactions: No Reported Reaction Type of Cardiac Device: AICD Device Placement Date:: 2014 Past Psychological History: Anxiety Smoking Status: Never smoker Past Alcohol Use History: Occasional Past Drug Use History: None Reported - Past Family History Father Family Medical History: Cancer, Coronary Artery Disease (CAD), Hyperlipidemia, Myocardial Infarction ([place]) Additional Family Medical History / Comment(s): lymphoma Mother Family Medical History: Pulmonary Embolus, Renal Disease Brother(s) Family Medical History: Myocardial Infarction ([place]) General Exam - General Exam Comments Initial Comments: GENERAL: Patient is well-developed and well-nourished. Patient is nontoxic and well- hydrated and is in mild distress. ENT: Neck is soft and supple. No significant lymphadenopathy is noted. Oropharynx is clear. Moist mucous membranes. Neck has full range of motion without eliciting any pain. EYES: The sclera were anicteric and conjunctiva were pink and moist. Extraocular movements were intact and pupils were equal round and reactive to light. Eyelids were unremarkable. PULMONARY: Unlabored respirations. Good breath sounds bilaterally. No audible rales rhonchi or wheezing was noted. CARDIOVASCULAR: There is a regular rate and rhythm without any murmurs gallops or rubs. ABDOMEN: Soft and nontender with normal bowel sounds. No palpable organomegaly was noted. There is no palpable pulsatile mass. SKIN: Skin is clear with no lesions or rashes and otherwise unremarkable. NEUROLOGIC: Patient is alert and oriented x3. Cranial nerves II through XII are grossly intact. Motor and sensory are also intact. Normal speech, volume and content. Symmetrical smile. MUSCULOSKELETAL: Normal extremities with adequate strength and full range of motion. No lower extremity swelling or edema. No calf tenderness. LYMPHATICS: No significant lymphadenopathy is noted PSYCHIATRIC: Normal psychiatric evaluation. Normal interpersonal interactions appears functionally intact in deals appropriately with others. Patient is mildly anxious Limitations: no limitations Course Vital Signs 06/08/16 06/08/16 20:36 21:50 Temperature 98.4 F Pulse Rate 81 67 Respiratory 20 16 Rate Blood Pressure 166/93 156/80 O2 Sat by Pulse 99 97 Oximetry Medical Decision Making - Medical Decision Making EKG shows normal sinus rhythm at 76 bpm MD interval 138 QRS is 82 QT interval 390 QTC is 438. Patient's EKG shows no ST segment elevation or depression or T- wave abdomen is noted. I spoke with Dr. Boss. Dr. Boss wanted the patient to start back on metoprolol tartrate 50 mg twice a day Chest x-ray was normal. - Lab Data Result diagrams: 06/08/16 21:25 06/08/16 21:25 Lab Results 06/08/16 06/08/16 06/08/16 Range/Units 21:25 21:25 21:25 WBC 6.3 (3.8-10.6) k/uL RBC 5.01 (4.30-5.90) m/uL Hgb 15.7 (13.0-17.5) gm/dL Hct 46.7 (39.0-53.0) % MCV 93.2 (80.0-100.0) fL MCH 31.3 (25.0-35.0) pg MCHC 33.6 (31.0-37.0) g/dL RDW 13.2 (11.5-15.5) % Plt Count 156 (150-450) k/uL Neutrophils % 56 % Lymphocytes % 29 % Monocytes % 8 % Eosinophils % 3 % Basophils % 1 % Neutrophils # 3.5 (1.3-7.7) k/uL Lymphocytes # 1.8 (1.0-4.8) k/uL Monocytes # 0.5 (0-1.0) k/uL Eosinophils # 0.2 (0-0.7) k/uL Basophils # 0.1 (0-0.2) k/uL PT (9.0-12.0) sec INR (<1.1) APTT (22.0-30.0) sec Sodium 142 (137-145) mmol/L Potassium 3.7 (3.5-5.1) mmol/L Chloride 103 (98-107) mmol/L Carbon Dioxide 26 (22-30) mmol/L Anion Gap 13 mmol/L BUN 12 (9-20) mg/dL Creatinine 0.62 L (0.66-1.25) mg/dL Est GFR (MDRD) Af Amer >60 (>60 ml/min/1.73 sqM) Est GFR (MDRD) Non-Af >60 (>60 ml/min/1.73 sqM) Glucose 117 H (74-99) mg/dL Calcium 9.7 (8.4-10.2) mg/dL Magnesium 1.7 (1.6-2.3) mg/dL Total Bilirubin 1.0 (0.2-1.3) mg/dL AST 39 (17-59) U/L ALT 58 (21-72) U/L Alkaline Phosphatase 54 (38-126) U/L Total Creatine Kinase 159 (55-170) U/L CK-MB (CK-2) 1.3 (0.0-2.4) ng/mL CK-MB (CK-2) Rel Index 0.8 Troponin I <0.012 (0.000-0.034) ng/mL Total Protein 8.0 (6.3-8.2) g/dL Albumin 4.6 (3.5-5.0) g/dL 06/08/16 Range/Units 21:25 WBC (3.8-10.6) k/uL RBC (4.30-5.90) m/uL Hgb (13.0-17.5) gm/dL Hct (39.0-53.0) % MCV (80.0-100.0) fL MCH (25.0-35.0) pg MCHC (31.0-37.0) g/dL RDW (11.5-15.5) % Plt Count (150-450) k/uL Neutrophils % % Lymphocytes % % Monocytes % % Eosinophils % % Basophils % % Neutrophils # (1.3-7.7) k/uL Lymphocytes # (1.0-4.8) k/uL Monocytes # (0-1.0) k/uL Eosinophils # (0-0.7) k/uL Basophils # (0-0.2) k/uL PT 11.2 (9.0-12.0) sec INR 1.1 (<1.1) APTT 23.9 (22.0-30.0) sec Sodium (137-145) mmol/L Potassium (3.5-5.1) mmol/L Chloride (98-107) mmol/L Carbon Dioxide (22-30) mmol/L Anion Gap mmol/L BUN (9-20) mg/dL Creatinine (0.66-1.25) mg/dL Est GFR (MDRD) Af Amer (>60 ml/min/1.73 sqM) Est GFR (MDRD) Non-Af (>60 ml/min/1.73 sqM) Glucose (74-99) mg/dL Calcium (8.4-10.2) mg/dL Magnesium (1.6-2.3) mg/dL Total Bilirubin (0.2-1.3) mg/dL AST (17-59) U/L ALT (21-72) U/L Alkaline Phosphatase (38-126) U/L Total Creatine Kinase (55-170) U/L CK-MB (CK-2) (0.0-2.4) ng/mL CK-MB (CK-2) Rel Index Troponin I (0.000-0.034) ng/mL Total Protein (6.3-8.2) g/dL Albumin (3.5-5.0) g/dL Disposition Clinical Impression: Symptomatic PVCs Disposition: HOME SELF-CARE Condition: Good Instructions: Palpitations (ED) Additional Instructions: Patient should take metoprolol tartrate 50 mg twice a day Referrals: Dutch Guadarrama MD [Primary Care Provider] - 1-2 days Time of Disposition: 22:51
[2016-06-08 22:07] LABS: Basophils # (A) 0.1 k/uL (0-0.2); Basophils % (A) 1 %; CHCM 34.5; Eosinophils # (A) 0.2 k/uL (0-0.7); Eosinophils % (A) 3 %; HCT 46.7 % (39.0-53.0); HDW 2.45; HGB 15.7 gm/dL (13.0-17.5); Luc # (Auto) 0.22; Luc % (Auto) 3; Lymphocytes # (A) 1.8 k/uL (1.0-4.8); Lymphocytes % (A) 29 %; MCH 31.3 pg (25.0-35.0); MCHC 33.6 g/dL (31.0-37.0); MCV 93.2 fL (80.0-100.0); Mean Platelet Volume 7.2; Monocytes # (A) 0.5 k/uL (0-1.0); Monocytes % (A) 8 %; Neutrophils # (A) 3.5 k/uL (1.3-7.7); Neutrophils % (A) 56 %; RBC 5.01 m/uL (4.30-5.90); RDW 13.2 % (11.5-15.5); WBC 6.3 k/uL (3.8-10.6); WBC (Perox) 6.12
[2016-06-08 22:16] LABS: ALT 58 U/L (21-72); AST 39 U/L (17-59); Alkaline Phosphatase 54 U/L (38-126); Anion Gap 13 mmol/L; Blood Urea Nitrogen 12 mg/dL (9-20); Calcium 9.7 mg/dL (8.4-10.2); Carbon Dioxide 26 mmol/L (22-30); Chloride 103 mmol/L (98-107); Glucose 117 mg/dL (74-99); Magnesium 1.7 mg/dL (1.6-2.3); Non-African American GFR(MDRD) >60 (>60 ml/min/1.73 sqM); Potassium 3.7 mmol/L (3.5-5.1); Sodium 142 mmol/L (137-145)
[2016-06-08] MEDS ORDERED: METOPROLOL TARTRATE 50 MG TAB PO STA (22:19)
[2016-06-08 22:22] LABS: INR 1.1 (<1.1); Partial Thromboplastin Time 23.9 sec (22.0-30.0); Prothrombin Time 11.2 sec (9.0-12.0)
--- NOTE | 2016-06-08 22:22 | XR ---
EXAM: XR Chest, 2 Views. CLINICAL HISTORY: Chest Pain. Arrythmia. Scheduled for cardiac ablation TECHNIQUE: Frontal and lateral views of the chest. COMPARISON: 05/17/2016 FINDINGS: Lungs: Minimal linear opacity over left lower lung zone is unchanged, likely representing atelectasis or scarring. Pleural space: Unremarkable. No pneumothorax. Heart: Unremarkable. No cardiomegaly. Mediastinum: Unremarkable. Bones/joints: Unremarkable. Other findings: Left pacer is again noted. IMPRESSION: No acute findings or substantial change.
[2016-06-08 22:28] LABS: Creatine Kinase 159 U/L (55-170)
[2016-06-08 22:41] LABS: Creatine Kinase MB 1.3 ng/mL (0.0-2.4); Troponin I <0.012 ng/mL (0.000-0.034)
[2016-06-08 22:58] VITALS: BP 134/77; PULSE 66
[2016-06-08 23:03] VITALS: TEMP 98.1
== END 2016-06-08 23:13 | disposition home or self-care (01) ==
LOC: EC 20:28
DX: I49.3 Ventricular premature depolarization (principal); I10 Essential (primary) hypertension; Z79.82 Long term (current) use of aspirin; Z79.899 Other long term (current) drug therapy; Z82.49 Family history of ischemic heart disease and other diseases of the circulatory system; Z95.810 Presence of automatic (implantable) cardiac defibrillator
CPT/HCPCS: 36415; 71020; 80053; 82550; 82553; 83735; 84484; 85025; 85610; 85730; 93005; 99284

== ENCOUNTER 2016-06-10 05:56 | Day surgery (SDC) | payer BC ==
[2016-06-07 09:20] VITALS: BMI 39.4
[~2016-06-10 05:56] MED LIST: DEXAMETHASONE SOD PHOSPHATE 10 MG/ML 1 ML VIAL IV ONE; HYDROmorphone 1 MG/ML 1 ML SYRINGE IVP PRN; MIDAZOLAM 2 MG/2 ML VIAL IV PRN; ONDANSETRON 4 MG/2 ML VIAL IVP ONE; SODIUM CHLORIDE 0.9% 1,000 ML IV SCH
[2016-06-10 06:36] LABS: Glucose,Whole Blood 152 mg/dL (75-99)
[2016-06-10] MEDS ORDERED: PROPOFOL 10 MG/ML 20 ML VIAL IV ONE (07:27)
[2016-06-10] MEDS ORDERED: PHENYLEPHRINE-0.9% NACL SYG 1 MG/10 ML SYRINGE ONE (07:27)
[2016-06-10] MEDS ORDERED: ePHEDrine 50 MG/ML 1 ML AMP ONE (07:27)
[2016-06-10] MEDS ORDERED: fentaNYL (PF) 50 MCG/ML 2 ML AMP ONE (07:27)
[2016-06-10] MEDS ORDERED: MIDAZOLAM 2 MG/2 ML VIAL ONE (07:27)
[2016-06-10] MEDS ORDERED: SUCCINYLCHOLINE CHLORIDE VIAL 200 MG/10 ML VIAL IV ONE (07:27)
[2016-06-10] MEDS ORDERED: diphenhydrAMINE 50 MG/ML 1 ML VIAL ONE (07:27)
[2016-06-10] MEDS ORDERED: KETAMINE 10 MG/ML 20 ML VIAL ONE (07:27)
[2016-06-10] MEDS ORDERED: ISOPROTERENOL 250 MCG/1.25 ML SYR IV ONE (07:27)
[2016-06-10] MEDS ORDERED: ceFAZolin 1,000 MG VIAL ONE (07:27)
[2016-06-10] MEDS ORDERED: LIDOCAINE URO-JET JELLY 2% 5 ML KIT ONE (07:41)
[2016-06-10] MEDS ORDERED: LIDOCAINE URO-JET JELLY 2% 5 ML KIT URETHRAL ONE (07:56)
[2016-06-10] MEDS ORDERED: IV FLUID CONTINUATION 900 ML IV ONE (07:58)
[2016-06-10] MEDS ORDERED: HEPARIN SODIUM (1,000 UNIT/ML) 1,000 UNIT in SODIUM CHLORIDE 0.9% 1,000 ML IRRIGATION ONE (08:00)
[2016-06-10] MEDS ORDERED: LIDOCAINE 2% INJ 20 MG/ML SQ ONE (08:08)
[2016-06-10] MEDS ORDERED: SODIUM CHLORIDE 0.9% 1,000 ML IV ONE (10:30)
[2016-06-10] MEDS ORDERED: IV FLUID CONTINUATION 1,000 ML IV ONE (13:18)
[2016-06-10] MEDS ORDERED: ACETAMINOPHEN TAB 325 MG TAB PO PRN (13:38)
[2016-06-10] MEDS ORDERED: ALPRAZolam 0.5 MG TAB PO PRN (13:42)
[2016-06-10 13:54] LABS: Glucose,Whole Blood 112 mg/dL (75-99)
[2016-06-10] MEDS: METOPROLOL SUCCINATE (ER) 100 MG TAB.ER.24H PO SCH (15:32)
[2016-06-10] MEDS: LACTATED RINGERS 1,000 ML IV SCH (15:33)
--- NOTE | 2016-06-10 16:50 | CE ---
DATE OF SERVICE: This is a 46 -year-old male patient who has symptomatic ( ) of ventricular tachycardia RVOT with ICD shocks. He is brought in for an EP study and ablation. The patient was brought to the EP lab in a fasting state. Written informed consent was obtained prior to the procedure. The diagnostic EP part of the procedure was performed under conscious sedation but the final mapping and then the ablation was performed under general anesthesia for ( ) catheter stability since the patient sleep apnea and snoring. The right and left groins were prepped and draped as per protocol. IV antibiotics were administered. The ICD was reprogrammed. The ICD therapies were turned off. At the end of the procedure ICD was interrogated once again and ICD therapies were turned on. ( ) program was programmed. Right and left groins were prepped and draped as per protocol. 1% Lidocaine was used for local anesthesia. Venous sheaths were placed in the right and left femoral veins, and via these, diagnostic catheters were positioned in the right heart (High right atrial area, His bundle area and coronary sinus and RV). Sinus cycle length 8 ms, AK interval 142 ms, QRS 88 ms, QT 390 ms, AH interval 52 ms, HV interval 48 ms. Sinus node recovery times at 600, 500 and 400 ms were 817, 813 and 905 ms, no delta waves are noted. AV node Wenckebach block 270 ms. Suggestion of slow pathway at 290 ms and coronary sinus pacing was also performed. No ICD was induced and there was no clear-cut evidence of slow pathway conduction with straight pacing. Burst stimulation was performed from the right ventricle. Extrastimulation was performed from the right ventricle. AV node Wenckebach block from the coronary sinus 310 ms. Wide open Isuprel was started and PVCs documented. The patient had four or five clinical PVCs. No RVOT VT was induced. PVCs from other locations of the right ventricle, other sites in the right ventricle as well as from the left ventricle were also identified. These are infrequent. Overall the patient's PVC burden was quite low today but we did see four clinical PVCs which were then paced mapped obviously activation map and could not be performed. Three-D mapping of the right ventricle was performed. Intracardiac echo was used for anatomic mapping. Interatrial septum was identified. The right and left atria were identified and no intracardiac masses are noted. The pulmonic valve, tricuspid valve, His bundle area and the RVOT and the right ventricle were mapped. Following that, paced mapping was performed and along the free wall, a good paced map concordance was obtained. The rest of the procedure was then performed under general anesthesia to ensure better stability and the anterior free wall of the RVOT just under the pulmonic valve. Paced mapping revealed a 98% concordance with clinical PVC. Multiple such paced maps were made to ensure that there was pace mapping concordance was stable and it was. RF ablation was applied here successfully. Noncapture was documented and bonus RF lesions were applied around this area to consolidate the lesion and noncapture was noted along this entire area. Following that Isuprel was once again given. Pacing was performed from the coronary sinus as well as from the right ventricle. High dose Isuprel was used was and then stopped abruptly and then no PVCs are noted either during this ( ) infusion or during washout. All catheters were then removed and patient was extubated and transferred to telemetry. RESULT: Diagnostic EP study revealing absence of nonsustained ventricular tachycardia with Isuprel or in the ( ) state. Four clinical PVCs were noted. Several other morphologies of premature ventricular contractions also noted. These were not targeted. Only the clinical PVC was targeted and 98% pace map was obtained and successful ablation was performed here. Noncapture was documented at the end of the RF lesion at these sites. At the end of the procedure, intracardiac echo did not reveal any pericardial effusion. Patient tolerated the procedure well without any acute complications. PROCEDURES PERFORMED: 1. Comprehensive diagnostic EP study with attempted arrhythmia induction. 2. CS pacing and recording. 3. Program stimulation following Isuprel. 4. Three-D mapping of VT. 5. RF ablation of VT. 6. ICD interrogation and reprogramming prior to the procedure. 7. ICD interrogation and reprogramming after the procedure. 8. Intracardiac echocardiography.
[2016-06-10 16:51] LABS: Glucose,Whole Blood 135 mg/dL (75-99)
[2016-06-10] MEDS: metFORMIN 500 MG TAB PO SCH (17:27)
[2016-06-10 20:59] LABS: Glucose,Whole Blood 138 mg/dL (75-99)
[2016-06-11] MEDS: LACTATED RINGERS 1,000 ML IV SCH (06:18)
[2016-06-11] MEDS: metFORMIN 500 MG TAB PO SCH (06:36)
[2016-06-11 06:51] LABS: Glucose,Whole Blood 125 mg/dL (75-99)
[2016-06-11] MEDS: METOPROLOL SUCCINATE (ER) 100 MG TAB.ER.24H PO SCH (07:55)
[2016-06-11] MEDS ORDERED: ASPIRIN 81 MG CHEW PO SCH (09:00)
[2016-06-11 11:12] VITALS: BP 123/70; PULSE 58; RESP 18; TEMP 97.1
[2016-06-11 12:02] LABS: Glucose,Whole Blood 92 mg/dL (75-99)
--- NOTE | 2016-06-11 13:47 | P.DS ---
Providers Attending physician: Ricardo Priest Primary care physician: [facility] Course: Patient is doing well this morning. No chest discomfort no dizziness lightheadedness. Groins of healed well. No hematoma no bruising No palpitations no PVCs at all on telemetry On examination He is afebrile 97.1, heart rate in the 50s, normal respirations, blood pressure 123/70 mmHg And neck examination is normal Heart sounds S1 and S2 are normal no murmurs or gallops no rub breath sounds are normal no rhonchi no crackles Abdomen soft nontender extremities are warm no edema Impression Runs of RVOT VT from the free wall anteriorly Known hypertrophic cardio myopathy status post ICD This was successful ablation of a free wall RVOT VT focus, pace mapping 98% concordance Plan Discharge home Follow Dr. Tadeo in 1 week Plan - Discharge Summary New Discharge Prescriptions: Metoprolol Succinate (ER) [Toprol Xl] 200 mg PO DAILY #1 tab Discharge Medication List Aspirin EC [Ecotrin Low Dose] 81 mg PO DAILY 02/21/16 [History] ALPRAZolam [Alprazolam] 0.5 mg PO TID PRN 05/17/16 [History] metFORMIN HCL [Glucophage] 500 mg PO BID #60 tab 05/19/16 [Rx] Metoprolol Succinate (ER) [Toprol Xl] 200 mg PO DAILY #1 tab 06/10/16 [Rx] Follow up Appointment(s)/Referral(s): Ricardo Priest MD [STAFF PHYSICIAN] - 1 Week Activity/Diet/Wound Care/Special Instructions: Post EP study - Ablation instructions 1. Keep access sites dry for 2 days. 2. No heavy lifting or straining for 2 days. 3. Avoid bending the hips repeatedly for 2 days. 4. You may go up and down stairs slowly Call if the following is noted 1. Bleeding, increasing swelling or pain at the access sites. 2. Increasing chest discomfort, especially upon taking a deep breath. 3. Increasing shortness of breath, at rest or with exertion. 4. Undue cough / phlegm 5. Difficulty or pain while swallowing. 6. Pain or change in color in the extremities. 7. Fever, chills, rigors. 8. Increasing headache or neurologic symptoms. 9. Dizziness, fainting, palpitations No changes in medications Follow-up with Dr. Tadeo and shellie in 1 week for a groin check Follow-up with Dr. Dr. Tadeo as scheduled Continue 200 mg of Toprol-XL daily Discharge Disposition: HOME SELF-CARE
== END 2016-06-11 13:37 | disposition home or self-care (01) ==
LOC: CATHEP 05:56 → 6SEL 12:35 → CATHEP 06-11 13:37
PROVIDERS: ATTEND Internal Medicine Clinical Cardiac Electrophysiology
DX: I47.2 Ventricular tachycardia (principal); I10 Essential (primary) hypertension; Z95.810 Presence of automatic (implantable) cardiac defibrillator; E11.9 Type 2 diabetes mellitus without complications; Z79.84 Long term (current) use of oral hypoglycemic drugs; Z79.82 Long term (current) use of aspirin; Z79.899 Other long term (current) drug therapy
CPT/HCPCS: 93623; 93662; 93654; C1894 ×2; C1769 ×3; C1730 ×2; C1759; C1732; J2001; J1644

== ENCOUNTER 2016-10-05 04:13 | Emergency (ER) | payer BC ==
[2016-10-05 04:46] LABS: Basophils # (A) 0.1 k/uL (0-0.2); Basophils % (A) 1 %; CH 32.4; CHCM 34.8; Eosinophils # (A) 0.2 k/uL (0-0.7); Eosinophils % (A) 3 %; HCT 46.4 % (39.0-53.0); HDW 2.42; HGB 15.6 gm/dL (13.0-17.5); Luc # (Auto) 0.17; Luc % (Auto) 3; Lymphocytes % (A) 32 %; MCH 31.4 pg (25.0-35.0); MCHC 33.6 g/dL (31.0-37.0); MCV 93.3 fL (80.0-100.0); Mean Platelet Volume 7.6; Monocytes # (A) 0.5 k/uL (0-1.0); Monocytes % (A) 8 %; Neutrophils # (A) 3.4 k/uL (1.3-7.7); Neutrophils % (A) 54 %; RBC 4.97 m/uL (4.30-5.90); RDW 13.5 % (11.5-15.5); WBC 6.3 k/uL (3.8-10.6)
[2016-10-05 04:54] LABS: ALT 54 U/L (21-72); AST 36 U/L (17-59); Alkaline Phosphatase 76 U/L (38-126); Anion Gap 13 mmol/L; Blood Urea Nitrogen 14 mg/dL (9-20); Calcium 9.6 mg/dL (8.4-10.2); Carbon Dioxide 22 mmol/L (22-30); Chloride 106 mmol/L (98-107); Glucose 176 mg/dL (74-99); Magnesium 1.9 mg/dL (1.6-2.3); Non-African American GFR(MDRD) >60 (>60 ml/min/1.73 sqM); Potassium 3.5 mmol/L (3.5-5.1); Sodium 141 mmol/L (137-145); Total Bilirubin 0.8 mg/dL (0.2-1.3)
[2016-10-05 04:57] LABS: INR 1.1 (<1.2); Partial Thromboplastin Time 24.2 sec (22.0-30.0)
--- NOTE | 2016-10-05 05:01 | XR ---
EXAM: XR Chest, 2 Views CLINICAL HISTORY: Reason: Chest Pain TECHNIQUE: Frontal and lateral views of the chest. COMPARISON: 06/08/16 FINDINGS: Lungs: Unremarkable. No consolidation. Pleural space: Unremarkable. No pneumothorax. Heart: Unremarkable. No cardiomegaly. Mediastinum: Unremarkable. Bones/joints: Unremarkable. Tubes, lines and devices: Stable left chest AICD. IMPRESSION: No acute findings.
[2016-10-05 05:11] LABS: Creatine Kinase 211 U/L (55-170)
[2016-10-05 05:24] LABS: Creatine Kinase MB 1.6 ng/mL (0.0-2.4); Troponin I <0.012 ng/mL (0.000-0.034)
--- NOTE | 2016-10-05 05:49 | ED ---
General Adult HPI - General Chief complaint: Arrhythmia/Palpitations Stated complaint: Chest Pain Time Seen by Provider: 10/05/16 04:18 Source: patient, RN notes reviewed, old records reviewed Mode of arrival: wheelchair Limitations: no limitations - History of Present Illness Initial comments: 46 yo male with history of palpitations, PVCs, ventricular tachycardia and hypertrophic cardiomyopathy presents with chief complaint of palpitations. This was associated with some shortness of breath. Patient does report significant anxiety about the possibility of being shocked by his defibrillator. This did happen in May. Since his defibrillator was placed he has had an ablation which according to him significantly reduced PVCs and tachycardia. Patient takes 200 mg of extended release metoprolol daily up until approximately 3 weeks ago when he reduced his dose to 150 mg. Patient was instructed to do this if he was feeling weak or shaky. Prior to arrival in the emergency Department patient took 50 mg of metoprolol tartrate and 2 Xanax. Patient denies shock from his defibrillator this evening. Denies abdominal pain. Denies nausea vomiting or diarrhea. Denies fever or chills. Patient's only other medication is 81 mg of aspirin and metformin for type 2 diabetes. - Related Data Home Medications Medication Instructions Recorded Confirmed Aspirin EC [Ecotrin Low Dose] 81 mg PO DAILY 02/21/16 06/08/16 ALPRAZolam [Alprazolam] 0.5 mg PO TID PRN 05/17/16 06/08/16 Previous Rx's Medication Instructions Recorded metFORMIN HCL [Glucophage] 500 mg PO BID #60 tab 05/19/16 Metoprolol Succinate (ER) [Toprol 200 mg PO DAILY #1 tab 06/10/16 Xl] Allergies Allergy/AdvReac Type Severity Reaction Status Date / Time No Known Allergies Allergy Verified 10/05/16 04:17 Review of Systems ROS Statement: Those systems with pertinent positive or pertinent negative responses have been documented in the HPI. ROS Other: All systems not noted in ROS Statement are negative. Past Medical History Past Medical History: Diabetes Mellitus, Hypertension Additional Past Medical History / Comment(s): hypertrophic cardiomyopathy, see Dr Priest H & P. SINUS ALLERGIES PER PATIENT History of Any Multi-Drug Resistant Organisms: None Reported Past Surgical History: AICD Additional Past Surgical History / Comment(s): ICD implant Past Anesthesia/Blood Transfusion Reactions: No Reported Reaction Type of Cardiac Device: AICD Device Placement Date:: 2014 Past Psychological History: Anxiety Smoking Status: Former smoker Past Alcohol Use History: Occasional Past Drug Use History: None Reported - Past Family History Father Family Medical History: Cancer, Coronary Artery Disease (CAD), Hyperlipidemia, Myocardial Infarction ([place]) Additional Family Medical History / Comment(s): lymphoma Mother Family Medical History: Pulmonary Embolus, Renal Disease Brother(s) Family Medical History: Myocardial Infarction ([place]) General Exam Limitations: no limitations General appearance: alert, in no apparent distress Head exam: Present: atraumatic, normocephalic Eye exam: Present: normal appearance, PERRL ENT exam: Present: normal exam, normal oropharynx, mucous membranes moist Neck exam: Present: normal inspection Respiratory exam: Present: normal lung sounds bilaterally. Absent: respiratory distress, wheezes Cardiovascular Exam: Present: regular rate, normal rhythm GI/Abdominal exam: Present: soft. Absent: distended, tenderness, guarding Extremities exam: Present: normal inspection, normal capillary refill. Absent: pedal edema Back exam: Present: normal inspection Neurological exam: Present: alert, oriented X3. Absent: CN II-XII intact, motor sensory deficit Psychiatric exam: Present: normal affect, normal mood Skin exam: Present: warm, dry. Absent: cyanosis, diaphoretic Course Vital Signs 10/05/16 04:15 Temperature 97.7 F Pulse Rate 83 Respiratory 18 Rate Blood Pressure 181/86 O2 Sat by Pulse 98 Oximetry - Reevaluation(s) Reevaluation #1: 10/05/16 05:56 On reevaluation, patient denies any current palpitations. Denies chest pain or shortness of breath EKG Findings - EKG Comments: EKG Findings:: EKG shows sinus rhythm with a ventricular rate of 83, 1 PVC noted , QRS duration 82, UT interval 148, QTC 451, no signs of ST segment elevation or depression, no T-wave abnormality Medical Decision Making - Medical Decision Making 46 yo male presenting with chief complaint of palpitations. Patient has history of PVCs and ventricular tachycardia. Patient also has history of hypertrophic cardiomyopathy status post defibrillator. Patient was very concerned and anxious, he did not want his defibrillator to fire. He does admit to decreasing his dose of metoprolol several weeks ago. And after taking an additional 50 mg of short acting metoprolol prior to arrival he states his symptoms have resolved, palpitations have greatly reduced. Laboratory studies including CBC, CMP, magnesium level and cardiac enzymes are all within normal limits. Chest x-ray shows no acute findings. EKG does show sinus rhythm with A she'll PVC, no signs of ischemia or infarction Patient is offered observation for cardiology evaluation, patient declines. He states he is able to follow up with cardiology in the next several days. Although the patient does have history of ventricular tachycardia and is experiencing PVCs, all electrolytes are within normal limits, and his symptoms are likely related to the reduction in his Toprol. He is instructed to resume his 200 mg of metoprolol succinate. 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 Diagnosis: PVCs, palpitations. - Lab Data Result diagrams: 10/05/16 04:38 10/05/16 04:38 Lab Results 10/05/16 10/05/16 10/05/16 Range/Units 04:38 04:38 04:38 WBC 6.3 (3.8-10.6) k/uL RBC 4.97 (4.30-5.90) m/uL Hgb 15.6 (13.0-17.5) gm/dL Hct 46.4 (39.0-53.0) % MCV 93.3 (80.0-100.0) fL MCH 31.4 (25.0-35.0) pg MCHC 33.6 (31.0-37.0) g/dL RDW 13.5 (11.5-15.5) % Plt Count 155 (150-450) k/uL Neutrophils % 54 % Lymphocytes % 32 % Monocytes % 8 % Eosinophils % 3 % Basophils % 1 % Neutrophils # 3.4 (1.3-7.7) k/uL Lymphocytes # 2.0 (1.0-4.8) k/uL Monocytes # 0.5 (0-1.0) k/uL Eosinophils # 0.2 (0-0.7) k/uL Basophils # 0.1 (0-0.2) k/uL PT (9.0-12.0) sec INR (<1.2) APTT (22.0-30.0) sec Sodium 141 (137-145) mmol/L Potassium 3.5 (3.5-5.1) mmol/L Chloride 106 (98-107) mmol/L Carbon Dioxide 22 (22-30) mmol/L Anion Gap 13 mmol/L BUN 14 (9-20) mg/dL Creatinine 0.60 L (0.66-1.25) mg/dL Est GFR (MDRD) Af Amer >60 (>60 ml/min/1.73 sqM) Est GFR (MDRD) Non-Af >60 (>60 ml/min/1.73 sqM) Glucose 176 H (74-99) mg/dL Calcium 9.6 (8.4-10.2) mg/dL Magnesium 1.9 (1.6-2.3) mg/dL Total Bilirubin 0.8 (0.2-1.3) mg/dL AST 36 (17-59) U/L ALT 54 (21-72) U/L Alkaline Phosphatase 76 (38-126) U/L Total Creatine Kinase 211 H (55-170) U/L CK-MB (CK-2) 1.6 (0.0-2.4) ng/mL CK-MB (CK-2) Rel Index 0.8 Troponin I <0.012 (0.000-0.034) ng/mL NT-Pro-B Natriuret Pep pg/mL Total Protein 7.0 (6.3-8.2) g/dL Albumin 4.2 (3.5-5.0) g/dL 10/05/16 10/05/16 Range/Units 04:38 04:38 WBC (3.8-10.6) k/uL RBC (4.30-5.90) m/uL Hgb (13.0-17.5) gm/dL Hct (39.0-53.0) % MCV (80.0-100.0) fL MCH (25.0-35.0) pg MCHC (31.0-37.0) g/dL RDW (11.5-15.5) % Plt Count (150-450) k/uL Neutrophils % % Lymphocytes % % Monocytes % % Eosinophils % % Basophils % % Neutrophils # (1.3-7.7) k/uL Lymphocytes # (1.0-4.8) k/uL Monocytes # (0-1.0) k/uL Eosinophils # (0-0.7) k/uL Basophils # (0-0.2) k/uL PT 11.0 (9.0-12.0) sec INR 1.1 (<1.2) APTT 24.2 (22.0-30.0) sec Sodium (137-145) mmol/L Potassium (3.5-5.1) mmol/L Chloride (98-107) mmol/L Carbon Dioxide (22-30) mmol/L Anion Gap mmol/L BUN (9-20) mg/dL Creatinine (0.66-1.25) mg/dL Est GFR (MDRD) Af Amer (>60 ml/min/1.73 sqM) Est GFR (MDRD) Non-Af (>60 ml/min/1.73 sqM) Glucose (74-99) mg/dL Calcium (8.4-10.2) mg/dL Magnesium (1.6-2.3) mg/dL Total Bilirubin (0.2-1.3) mg/dL AST (17-59) U/L ALT (21-72) U/L Alkaline Phosphatase (38-126) U/L Total Creatine Kinase (55-170) U/L CK-MB (CK-2) (0.0-2.4) ng/mL CK-MB (CK-2) Rel Index Troponin I (0.000-0.034) ng/mL NT-Pro-B Natriuret Pep 230 pg/mL Total Protein (6.3-8.2) g/dL Albumin (3.5-5.0) g/dL Disposition Clinical Impression: Palpitations, Ventricular premature beats Disposition: HOME SELF-CARE Condition: Good Instructions: Palpitations (ED) Referrals: Adina Falcon DO [Primary Care Provider] - 1-2 days Ricardo Priest MD [STAFF PHYSICIAN] - 1-2 days Time of Disposition: 05:49
[2016-10-05 05:55] VITALS: BP 142/55; PULSE 84; RESP 16; TEMP 98.5
== END 2016-10-05 05:54 | disposition home or self-care (01) ==
LOC: SUPCPDRO 04:13 → EC 04:13
DX: I49.3 Ventricular premature depolarization (principal); Z87.891 Personal history of nicotine dependence; Z79.82 Long term (current) use of aspirin; Z95.810 Presence of automatic (implantable) cardiac defibrillator; Z82.49 Family history of ischemic heart disease and other diseases of the circulatory system
CPT/HCPCS: 36415; 71020; 80053; 82550; 82553; 83735; 83880; 84484; 85025; 85610; 85730; 93005; 99285

== ENCOUNTER 2017-03-05 15:55 | Emergency (ER) | payer BC ==
[2017-03-05 16:06] VITALS: TEMP 98
[2017-03-05 17:00] LABS: Basophils % (A) 1 %; Eosinophils # (A) 0.2 k/uL (0-0.7); Eosinophils % (A) 4 %; HCT 48.4 % (39.0-53.0); HGB 15.7 gm/dL (13.0-17.5); Lymphocytes % (A) 32 %; MCH 30.3 pg (25.0-35.0); MCHC 32.4 g/dL (31.0-37.0); MCV 93.4 fL (80.0-100.0); Mean Platelet Volume 7.8; Monocytes # (A) 0.4 k/uL (0-1.0); Monocytes % (A) 7 %; Neutrophils # (A) 3.3 k/uL (1.3-7.7); Neutrophils % (A) 54 %; Platelet Count 206 k/uL (150-450); RBC 5.18 m/uL (4.30-5.90); RDW 13.7 % (11.5-15.5); WBC 6.1 k/uL (3.8-10.6)
[2017-03-05 17:04] LABS: ALT 58 U/L (21-72); AST 42 U/L (17-59); Albumin 4.5 g/dL (3.5-5.0); Alkaline Phosphatase 48 U/L (38-126); Anion Gap 12 mmol/L; Blood Urea Nitrogen 13 mg/dL (9-20); Calcium 9.8 mg/dL (8.4-10.2); Carbon Dioxide 24 mmol/L (22-30); Chloride 106 mmol/L (98-107); Glucose 139 mg/dL (74-99); Magnesium 1.8 mg/dL (1.6-2.3); Potassium 4.3 mmol/L (3.5-5.1); Sodium 142 mmol/L (137-145); Total Bilirubin 1.1 mg/dL (0.2-1.3); Total Protein 7.6 g/dL (6.3-8.2)
--- NOTE | 2017-03-05 17:13 | XR ---
EXAMINATION TYPE: XR chest 2V DATE OF EXAM: 03/05/2017 COMPARISON: 10/05/2016 HISTORY: Palpitations TECHNIQUE: Frontal and lateral views of the chest are obtained. FINDINGS: There is no heart failure nor confluent pneumonic infiltrate. Heart size is normal. There are chest leads. There is left axillary pacemaker with the lead tip in the right ventricle. Bony thor ax is intact. IMPRESSION: No active cardiopulmonary disease. No change. Normal heart.
[2017-03-05 17:16] LABS: INR 1.1 (<1.2); Partial Thromboplastin Time 23.4 sec (22.0-30.0); Prothrombin Time 10.7 sec (9.0-12.0)
[2017-03-05 17:26] LABS: Troponin I 0.013 ng/mL (0.000-0.034)
--- NOTE | 2017-03-05 17:35 | ED ---
Arrhythmia/Palpitations HPI - General Chief Complaint: Arrhythmia/Palpitations Stated Complaint: Cardiac Issues Time Seen by Provider: 03/05/17 16:19 Source: patient Mode of arrival: ambulatory Limitations: no limitations - History of Present Illness Initial Comments: This is a 47-year-old male with a history of hypertrophic cardiomyopathy with an AICD and recurrent episodes of ventricular tachycardia who presents emergency department for palpitations. Patient states that he is typically takes 150 mg of metoprolol daily however over the last week he has increased this to 200 mg daily because he's had more frequent palpitations. He states that he did have an ablation done for his ventricular tachycardia by Dr. Tay in the past. He states that today he was driving and all of a sudden became very flushed and he felt more palpitations and "arrhythmia" so he decided to come to the emergency department. He denies any chest pain. He does not have any symptoms right now. No shortness of breath. No lightheadedness currently. He does state that when he was flushed he felt a little lightheaded. He denies any other acute complaints at this time. - Related Data Home Medications Medication Instructions Recorded Confirmed Aspirin EC [Ecotrin Low Dose] 81 mg PO DAILY 02/21/16 03/05/17 ALPRAZolam [Alprazolam] 0.5 mg PO TID PRN 05/17/16 03/05/17 metFORMIN HCL 1,000 mg PO DAILY 03/05/17 03/05/17 Previous Rx's Medication Instructions Recorded Metoprolol Succinate (ER) [Toprol 200 mg PO DAILY #1 tab 06/10/16 Xl] Allergies Allergy/AdvReac Type Severity Reaction Status Date / Time No Known Allergies Allergy Verified 03/05/17 16:20 Review of Systems ROS Statement: Those systems with pertinent positive or pertinent negative responses have been documented in the HPI. ROS Other: All systems not noted in ROS Statement are negative. Past Medical History Past Medical History: Diabetes Mellitus, Hypertension Additional Past Medical History / Comment(s): hypertrophic cardiomyopathy, see Dr Priest H & P. SINUS ALLERGIES PER PATIENT History of Any Multi-Drug Resistant Organisms: None Reported Past Surgical History: Ablation, AICD Additional Past Surgical History / Comment(s): ICD implant Past Anesthesia/Blood Transfusion Reactions: No Reported Reaction Type of Cardiac Device: AICD Device Placement Date:: 2014 Past Psychological History: Anxiety Smoking Status: Former smoker Past Alcohol Use History: Occasional Past Drug Use History: None Reported - Past Family History Father Family Medical History: Cancer, Coronary Artery Disease (CAD), Hyperlipidemia, Myocardial Infarction ([place]) Additional Family Medical History / Comment(s): lymphoma Mother Family Medical History: Pulmonary Embolus, Renal Disease Brother(s) Family Medical History: Myocardial Infarction ([place]) General Exam - General Exam Comments Initial Comments: Constitutional: Awake alert Appears comfortable Head: Normocephalic atraumatic Eyes: no conjunctival injection No scleral icterus EOMI Neck: No JVD Supple Heart: Regular rate rhythm normal S1-S2 no murmurs Lungs: Clear to auscultation bilaterally No wheezing No rales Abdomen: Soft nondistended nontender Extremities: Non edematous DP pulses intact Radial pulses intact Neuro: A&Ox3 No focal neurologic deficits Psych: Appropriate mood and affect Limitations: no limitations Course Vital Signs 03/05/17 03/05/17 03/05/17 16:00 16:02 17:30 Temperature 98.0 F Pulse Rate 72 51 L Pulse Rate [ 50 L Bottom Pounder Cement Shoes ] Respiratory 18 18 Rate Blood Pressure 176/83 O2 Sat by Pulse 98 100 Oximetry 03/05/17 03/05/17 17:44 18:42 Temperature 98.0 F Pulse Rate 56 L 54 L Pulse Rate [ Bottom Pounder [employer]oes ] Respiratory 20 20 Rate Blood Pressure 154/74 156/78 O2 Sat by Pulse 98 98 Oximetry EKG Findings - EKG Comments: EKG Findings:: EKG showing sinus bradycardia with a rate of 57. Normal ST segment changes or T-wave inversions. QTC is 46. Other intervals normal. No ectopy. Medical Decision Making - Medical Decision Making Is a 47-year-old male who presents emergency department for palpitations. He is monitored on the telemetry for a couple of hours without any arrhythmias noted. EKG was normal. Labwork was unremarkable. Spoke with Dr. darell hawthorne who recommended him following up in the office tomorrow for interrogation of his ICD. The patient agree with this plan. Instructed to return if it worsening or changing symptoms. All questions were answered. - Lab Data Result diagrams: 03/05/17 16:20 03/05/17 16:20 Lab Results 03/05/17 03/05/17 03/05/17 Range/Units 16:20 16:20 16:20 WBC 6.1 (3.8-10.6) k/uL RBC 5.18 (4.30-5.90) m/uL Hgb 15.7 (13.0-17.5) gm/dL Hct 48.4 (39.0-53.0) % MCV 93.4 (80.0-100.0) fL MCH 30.3 (25.0-35.0) pg MCHC 32.4 (31.0-37.0) g/dL RDW 13.7 (11.5-15.5) % Plt Count 206 (150-450) k/uL Neutrophils % 54 % Lymphocytes % 32 % Monocytes % 7 % Eosinophils % 4 % Basophils % 1 % Neutrophils # 3.3 (1.3-7.7) k/uL Lymphocytes # 2.0 (1.0-4.8) k/uL Monocytes # 0.4 (0-1.0) k/uL Eosinophils # 0.2 (0-0.7) k/uL Basophils # 0.0 (0-0.2) k/uL PT (9.0-12.0) sec INR (<1.2) APTT (22.0-30.0) sec Sodium 142 (137-145) mmol/L Potassium 4.3 (3.5-5.1) mmol/L Chloride 106 (98-107) mmol/L Carbon Dioxide 24 (22-30) mmol/L Anion Gap 12 mmol/L BUN 13 (9-20) mg/dL Creatinine 0.65 L (0.66-1.25) mg/dL Est GFR (MDRD) Af Amer >60 (>60 ml/min/1.73 sqM) Est GFR (MDRD) Non-Af >60 (>60 ml/min/1.73 sqM) Glucose 139 H (74-99) mg/dL Calcium 9.8 (8.4-10.2) mg/dL Magnesium 1.8 (1.6-2.3) mg/dL Total Bilirubin 1.1 (0.2-1.3) mg/dL AST 42 (17-59) U/L ALT 58 (21-72) U/L Alkaline Phosphatase 48 (38-126) U/L CK-MB (CK-2) 1.0 (0.0-2.4) ng/mL Troponin I 0.013 (0.000-0.034) ng/mL NT-Pro-B Natriuret Pep pg/mL Total Protein 7.6 (6.3-8.2) g/dL Albumin 4.5 (3.5-5.0) g/dL 03/05/17 03/05/17 Range/Units 16:20 16:20 WBC (3.8-10.6) k/uL RBC (4.30-5.90) m/uL Hgb (13.0-17.5) gm/dL Hct (39.0-53.0) % MCV (80.0-100.0) fL MCH (25.0-35.0) pg MCHC (31.0-37.0) g/dL RDW (11.5-15.5) % Plt Count (150-450) k/uL Neutrophils % % Lymphocytes % % Monocytes % % Eosinophils % % Basophils % % Neutrophils # (1.3-7.7) k/uL Lymphocytes # (1.0-4.8) k/uL Monocytes # (0-1.0) k/uL Eosinophils # (0-0.7) k/uL Basophils # (0-0.2) k/uL PT 10.7 (9.0-12.0) sec INR 1.1 (<1.2) APTT 23.4 (22.0-30.0) sec Sodium (137-145) mmol/L Potassium (3.5-5.1) mmol/L Chloride (98-107) mmol/L Carbon Dioxide (22-30) mmol/L Anion Gap mmol/L BUN (9-20) mg/dL Creatinine (0.66-1.25) mg/dL Est GFR (MDRD) Af Amer (>60 ml/min/1.73 sqM) Est GFR (MDRD) Non-Af (>60 ml/min/1.73 sqM) Glucose (74-99) mg/dL Calcium (8.4-10.2) mg/dL Magnesium (1.6-2.3) mg/dL Total Bilirubin (0.2-1.3) mg/dL AST (17-59) U/L ALT (21-72) U/L Alkaline Phosphatase (38-126) U/L CK-MB (CK-2) (0.0-2.4) ng/mL Troponin I (0.000-0.034) ng/mL NT-Pro-B Natriuret Pep 224 pg/mL Total Protein (6.3-8.2) g/dL Albumin (3.5-5.0) g/dL Disposition Clinical Impression: Palpitations Disposition: HOME SELF-CARE Condition: Stable Instructions: Palpitations (ED) Referrals: Adina Falcon DO [Primary Care Provider] - 1-2 days Ruben Tadeo MD [STAFF PHYSICIAN] - 1-2 days
[2017-03-05 17:45] VITALS: RESP 20
[2017-03-05 18:44] VITALS: BP 156/78; PULSE 54
== END 2017-03-05 18:44 | disposition home or self-care (01) ==
LOC: EC 15:55
DX: R00.2 Palpitations (principal); R42 Dizziness and giddiness; E11.9 Type 2 diabetes mellitus without complications; I10 Essential (primary) hypertension; F41.9 Anxiety disorder, unspecified; Z87.891 Personal history of nicotine dependence; Z79.84 Long term (current) use of oral hypoglycemic drugs; Z79.82 Long term (current) use of aspirin
CPT/HCPCS: 36415; 71046; 80053; 82553; 83735; 83880; 84484; 85025; 85610; 85730; 93005; 99285

== ENCOUNTER 2020-04-25 02:47 | Inpatient (IN) | payer BC ==
--- NOTE | 2020-04-25 02:59 | ED ---
Chest Pain HPI - General Chief Complaint: Chest Pain Stated Complaint: Chest pain Time Seen by Provider: 04/25/20 02:49 Source: patient Mode of arrival: ambulatory Limitations: no limitations - Related Data Home Medications Medication Instructions Recorded Confirmed Aspirin EC [Ecotrin Low Dose] 81 mg PO DAILY 02/21/16 03/05/17 ALPRAZolam [Alprazolam] 0.5 mg PO TID PRN 05/17/16 03/05/17 metFORMIN HCL 1,000 mg PO DAILY 03/05/17 03/05/17 Previous Rx's Medication Instructions Recorded Metoprolol Succinate (ER) [Toprol 200 mg PO DAILY #1 tab 06/10/16 Xl] Allergies Allergy/AdvReac Type Severity Reaction Status Date / Time No Known Allergies Allergy Verified 04/25/20 02:53 Review of Systems ROS Statement: Those systems with pertinent positive or pertinent negative responses have been documented in the HPI. ROS Other: All systems not noted in ROS Statement are negative. EKG Findings - EKG Comments: EKG Findings:: EKG shows A. fib with RVR 128 QRS 78 QTc 417 Past Medical History Past Medical History: Diabetes Mellitus, Hypertension Additional Past Medical History / Comment(s): hypertrophic cardiomyopathy, see Dr Priest H & P. SINUS ALLERGIES PER PATIENT History of Any Multi-Drug Resistant Organisms: None Reported Past Surgical History: Ablation, AICD Additional Past Surgical History / Comment(s): ICD implant Past Anesthesia/Blood Transfusion Reactions: No Reported Reaction Type of Cardiac Device: AICD Device Placement Date:: 2014 Past Psychological History: Anxiety Smoking Status: Never smoker Past Alcohol Use History: Occasional Past Drug Use History: None Reported - Past Family History Father Family Medical History: Cancer, Coronary Artery Disease (CAD), Hyperlipidemia, Myocardial Infarction ([place]) Additional Family Medical History / Comment(s): lymphoma Mother Family Medical History: Pulmonary Embolus, Renal Disease Brother(s) Family Medical History: Myocardial Infarction ([place]) General Exam Limitations: no limitations Course Vital Signs 04/25/20 04/25/20 04/25/20 02:50 03:13 03:20 Temperature 98.6 F Pulse Rate 89 151 H Pulse Rate [ 130 H Order Entry Technician ] Respiratory 18 18 Rate Blood Pressure 160/88 O2 Sat by Pulse 99 97 Oximetry 03/09/21 03/09/21 03/09/21 03:30 03:40 03:49 Temperature Pulse Rate 125 H 135 H 118 H Pulse Rate [ Order Entry Technician ] Respiratory 16 16 16 Rate Blood Pressure 133/116 145/87 151/87 O2 Sat by Pulse 97 97 97 Oximetry 04/25/20 04:00 Temperature Pulse Rate 125 H Pulse Rate [ Order Entry Technician ] Respiratory 16 Rate Blood Pressure 114/97 O2 Sat by Pulse 97 Oximetry Disposition Clinical Impression: New onset atrial fibrillation, Atrial fibrillation with RVR, SVT (supraventricular tachycardia) Narrative: history of [place] Disposition: ADMITTED IP TO THIS HOSP Condition: Serious Is patient prescribed a controlled substance at d/c from ED?: No Referrals: Adina Falcon DO [Primary Care Provider] - 1-2 days
[2020-04-25] MEDS ORDERED: DILTIAZEM DRIP BOLUS FROM BAG 1 MG SOLN IV ONE (03:01)
[2020-04-25] MEDS: METOPROLOL TARTRATE 5 MG/5 ML VIAL IVP SCH ×13 (03:22→10:20)
[2020-04-25] MEDS ORDERED: DILTIAZEM 125 MG in SODIUM CHLORIDE 0.9% 100 ML IV SCH (03:30)
[2020-04-25 03:37] LABS: Basophils % (A) 0 %; Eosinophils # (A) 0.4 k/uL (0-0.7); Eosinophils % (A) 5 %; HCT 44.5 % (39.0-53.0); HGB 15.4 gm/dL (13.0-17.5); Lymphocytes # (A) 2.6 k/uL (1.0-4.8); Lymphocytes % (A) 37 %; MCH 32.2 pg (25.0-35.0); MCHC 34.6 g/dL (31.0-37.0); Mean Platelet Volume 7.9; Monocytes # (A) 0.6 k/uL (0-1.0); Monocytes % (A) 9 %; Neutrophils # (A) 3.4 k/uL (1.3-7.7); Neutrophils % (A) 47 %; Platelet Count 177 k/uL (150-450); RBC 4.78 m/uL (4.30-5.90); RDW 12.5 % (11.5-15.5); WBC 7.2 k/uL (3.8-10.6)
--- NOTE | 2020-04-25 03:40 | XR ---
EXAM: XR Chest, 2 Views CLINICAL HISTORY: ITS.REASON XR Reason: Chest Pain TECHNIQUE: Frontal and lateral views of the chest. COMPARISON: March 05, 2017. FINDINGS: Lungs: Unremarkable. No consolidation. Pleural space: Unremarkable. No pneumothorax. Heart: Unremarkable. No cardiomegaly. Mediastinum: Unremarkable. Bones/joints: Mild degenerative osteophytosis is seen in the lower thoracic spine. Tubes, lines and devices: There is a pacing device on the left. IMPRESSION: No acute findings in the chest.
[2020-04-25] MEDS ORDERED: LORazepam 2 MG/ML INJ IV STA (03:53)
[2020-04-25 03:55] LABS: ALT 56 U/L (4-49); AST 48 U/L (17-59); African American GFR (CKD) >90 (>60 ml/min/1.73 sqM); Albumin 4.5 g/dL (3.5-5.0); Alkaline Phosphatase 64 U/L (38-126); Anion Gap 10 mmol/L; Blood Urea Nitrogen 13 mg/dL (9-20); Calcium 9.5 mg/dL (8.4-10.2); Carbon Dioxide 26 mmol/L (22-30); Chloride 103 mmol/L (98-107); Creatine Kinase 152 U/L (55-170); Glucose 208 mg/dL (74-99); Lipase 129 U/L (23-300); Magnesium 1.8 mg/dL (1.6-2.3); Non-African American GFR(CKD) >90 (>60 ml/min/1.73 sqM); Potassium 3.7 mmol/L (3.5-5.1); Sodium 139 mmol/L (137-145); Total Bilirubin 0.8 mg/dL (0.2-1.3); Total Protein 7.2 g/dL (6.3-8.2)
[2020-04-25 04:06] LABS: Troponin I <0.012 ng/mL (0.000-0.034)
[2020-04-25] MEDS ORDERED: MORPHINE SULFATE 4 MG/ML SYRINGE IV PRN (04:14)
[2020-04-25] MEDS ORDERED: NITROGLYCERIN SL TABS 0.4 MG TAB SUBLINGUAL PRN (04:14)
[2020-04-25] MEDS ORDERED: SODIUM CHLORIDE 0.9% 1,000 ML IV SCH (04:15)
[2020-04-25] MEDS ORDERED: LORazepam 2 MG/ML INJ IV PRN (04:15)
[2020-04-25 04:47] LABS: Partial Thromboplastin Time 24.7 sec (22.0-30.0); Prothrombin Time 10.4 sec (9.0-12.0)
[2020-04-25 06:30] LABS: Glucose,Whole Blood 239 mg/dL (75-99)
[2020-04-25] MEDS ORDERED: METOPROLOL SUCCINATE (ER) 100 MG TAB.ER.24H PO SCH (08:45)
[2020-04-25] MEDS ORDERED: ATORVASTATIN 10 MG TAB PO SCH (09:00)
[2020-04-25] MEDS ORDERED: metFORMIN 500 MG TAB PO SCH (09:00)
[2020-04-25] MEDS ORDERED: METOPROLOL SUCCINATE (ER) 50 MG TAB.ER.24H PO SCH (09:00)
[2020-04-25 09:03] VITALS: BP 126/72; PULSE 97; RESP 16; TEMP 98
[2020-04-25] MEDS ORDERED: APIXABAN 5 MG TAB PO SCH (10:45)
--- NOTE | 2020-04-25 12:04 | P.CRDCN ---
History of Present Illness Consult date: 04/25/20 History of present illness: HISTORY OF PRESENT ILLNESS: This is a 50-year-old male with a past medical history significant for ventricular tachycardia with previous ablation and AICD implantation, hypertension, hyperlipidemia, and diabetes mellitus. Patient follows in the office with Dr. Priest. We have been asked to see the patient in consultation for atrial fibrillation. Patient examined at the bedside. Patient reports he began having palpitations around 3 AM. He states he could feel his heart beating very fast and noticed it was also irregular. He states he took an extra dose of his short acting beta michell and also took a Xanax but the palpitations persisted. He reports some shortness of breath with the palpitations. He denie s any chest pain. Patient then presented to the emergency room for further evaluation. The patient was noted to be in A. fib with RVR. The patient does not have a history of atrial fibrillation. He was started on a Cardizem drip and admitted to the hospital for further evaluation. EKG reveals atrial fibrillation with RVR Chest xray negative for acute process Laboratory data: WBC 7.2. Hemoglobin 15.4. Platelet count 177. Sodium 139. Potassium 3.7. BUN 13. Creatinine 0.65. Troponin 0.012. 0.066. 0.053. Current home cardiac medications include Crestor 5 mg daily, metoprolol succinat e 150 mg daily, losartan 12.5 mg daily Most recent echocardiogram obtained in 2017 reveals ejection fraction 55-60%, mild mitral regurgitation and mild tricuspid regurgitation REVIEW OF SYSTEMS: At the time of my exam: CONSTITUTIONAL: Denies fever or chills. HEENT: Denies blurred vision, vision changes, or eye pain. Denies hemoptysis CARDIOVASCULAR: Denies chest pain. Denies orthopnea. Denies PND. Denies palpitations RESPIRATORY: Denies shortness of breath. GASTROINTESTINAL: Denies abdominal pain. Denies nausea or vomiting. HEMATOLOGIC: Denies bleeding disorders. GENITOURINARY: Denies any blood in urine. SKIN: Denies pruitis. Denies rash. PHYSICAL EXAM: VITAL SIGNS: Reviewed. GENERAL: Well-developed in no acute distress. HEENT: Head is normocephalic. Pupils are equal, round. Sclerae anicteric. Mucous membranes of the mouth are moist. Neck supple. No JVD or thyromegaly LUNGS: Respirations even and unlabored. Lungs essentially clear to auscultation bilaterally. HEART: Irregular rate and rhythm. S1 and S2 heard. ABDOMEN: Soft. Nondistended. Nontender. EXTREMITIES: Normal range of motion. No clubbing or cyanosis. Peripheral pulses intact. No lower extremity edema NEUROLOGIC: Awake and alert. Oriented x 3. ASSESSMENT: New-onset atrial fibrillation with RVR History of ventricular tachycardia with previous ablation in 2017 History of AICD implantation Hypertension Hyperlipidemia Diabetes mellitus Obesity: BMI 37.5 PLAN: Obtain 2-D echo to assess cardiac structure and function Discontinue Cardizem drip Increase metoprolol succinate to 200 mg daily Begin Eliquis 5 mg twice a day Check TSH Further recommendations pending patient course Nurse practitioner note has been reviewed by physician. Signing provider agrees with the documented findings, assessment, and plan of care. Past Medical History Past Medical History: Diabetes Mellitus, Hypertension Additional Past Medical History / Comment(s): hypertrophic cardiomyopathy, see Dr Priest H & P. SINUS ALLERGIES PER PATIENT History of Any Multi-Drug Resistant Organisms: None Reported Past Surgical History: Ablation, AICD Additional Past Surgical History / Comment(s): ICD implant Past Anesthesia/Blood Transfusion Reactions: No Reported Reaction Type of Cardiac Device: AICD Device Placement Date:: 2014 Past Psychological History: Anxiety Smoking Status: Former smoker Past Alcohol Use History: Occasional Additional Past Alcohol Use History / Comment(s): pt states very rare ETOH intake, last drink was approx. 3 weeks ago. Past Drug Use History: None Reported - Past Family History Father Family Medical History: Cancer, Coronary Artery Disease (CAD), Hyperlipidemia, Myocardial Infarction ([place]) Additional Family Medical History / Comment(s): lymphoma Mother Family Medical History: Pulmonary Embolus, Renal Disease Brother(s) Family Medical History: Myocardial Infarction ([place]) Medications and Allergies Home Medications Medication Instructions Recorded Confirmed Type ALPRAZolam [Alprazolam] 0.25 mg PO DAILY PRN 05/17/16 04/25/20 History metFORMIN HCL 500 mg PO BID 03/05/17 04/25/20 History Acetaminophen Tab [Tylenol] 1,000 mg PO Q6HR PRN 04/25/20 04/25/20 History Apixaban [Eliquis] 5 mg PO BID #60 tab 04/25/20 Rx Losartan Potassium 12.5 mg PO HS 04/25/20 04/25/20 History Metoprolol Succinate (ER) [Toprol 200 mg PO DAILY #60 tab 04/25/20 Rx XL] Rosuvastatin Calcium [Crestor] 5 mg PO DAILY 04/25/20 04/25/20 History Allergies Allergy/AdvReac Type Severity Reaction Status Date / Time No Known Allergies Allergy Verified 04/25/20 06:54 Physical Exam Vitals: Vital Signs Temp Pulse Pulse Resp BP BP Pulse Ox 04/25/20 08:57 98.0 F 97 16 126/72 96 04/25/20 08:00 97 16 04/25/20 05:56 96 18 04/25/20 05:19 98.6 F 96 18 163/92 97 04/25/20 04:20 89 16 131/86 96 04/25/20 04:00 125 H 16 114/97 97 04/25/20 03:49 118 H 16 151/87 97 04/25/20 03:40 135 H 16 145/87 97 04/25/20 03:30 125 H 16 133/116 97 04/25/20 03:20 151 H 18 97 04/25/20 03:13 130 H 04/25/20 02:50 98.6 F 89 18 160/88 99 Intake and Output 04/24/20 04/25/20 04/25/20 22:59 06:59 14:59 Intake Total 100 Balance 100 Intake: Intake, IV Titration 100 Amount Sodium Chloride 0.9% 1, 100 000 ml @ 100 mls/hr IV . Q10H [facility] Rx#:[id number] Other: Voiding Method Toilet Toilet # Voids 2 Weight 136 kg Results 04/25/20 03:19 04/25/20 03:19 Cardiac Enzymes 04/25/20 04/25/20 04/25/20 Range/Units 03:19 03:19 06:19 AST 48 (17-59) U/L CK-MB (CK-2) 1.0 (0.0-2.4) ng/mL Troponin I <0.012 0.066 H* (0.000-0.034) ng/mL 04/25/20 Range/Units 08:56 AST (17-59) U/L CK-MB (CK-2) (0.0-2.4) ng/mL Troponin I 0.053 H* (0.000-0.034) ng/mL Coagulation 04/25/20 Range/Units 03:19 PT 10.4 (9.0-12.0) sec APTT 24.7 (22.0-30.0) sec CBC 04/25/20 Range/Units 03:19 WBC 7.2 (3.8-10.6) k/uL RBC 4.78 (4.30-5.90) m/uL Hgb 15.4 (13.0-17.5) gm/dL Hct 44.5 (39.0-53.0) % Plt Count 177 (150-450) k/uL Comprehensive Metabolic Panel 04/25/20 Range/Units 03:19 Sodium 139 (137-145) mmol/L Potassium 3.7 (3.5-5.1) mmol/L Chloride 103 (98-107) mmol/L Carbon Dioxide 26 (22-30) mmol/L BUN 13 (9-20) mg/dL Creatinine 0.65 L (0.66-1.25) mg/dL Glucose 208 H (74-99) mg/dL Calcium 9.5 (8.4-10.2) mg/dL AST 48 (17-59) U/L ALT 56 H (4-49) U/L Alkaline Phosphatase 64 (38-126) U/L Total Protein 7.2 (6.3-8.2) g/dL Albumin 4.5 (3.5-5.0) g/dL Intake and Output 04/24/20 04/25/20 04/25/20 22:59 06:59 14:59 Intake Total 100 Balance 100 Intake: Intake, IV Titration 100 Amount Sodium Chloride 0.9% 1, 100 000 ml @ 100 mls/hr IV . Q10H [facility] Rx#:[id number] Other: Voiding Method Toilet Toilet # Voids 2 Weight 136 kg 04/25/20 03:19 04/25/20 03:19
[2020-04-25] MEDS ORDERED: LOSARTAN 25 MG TAB PO SCH (21:00)
--- NOTE | 2020-05-01 09:02 | P.HPIM ---
History of Present Illness H&P Date: 04/25/20 Chief Complaint: chest pain Ajit Moura is a 50 yo male with a past medical history significant for ventricular tachycardia with previous ablation and AICD implantation, hyper tension, hyperlipidemia, and diabetes mellitus who presented to the ED complaining of chest pain and palpitations. Patient reports he began having palpitations around 3 AM. He states he could feel his heart beating very fast and noticed it was also irregular. He states he took an extra dose of his short acting beta michell and also took a Xanax but the palpitations persisted. He reports some shortness of breath with the palpitations. He denies any chest pain. Patient then presented to the emergency room for further evaluation. The patient was noted to be in A. fib with RVR. The patient does not have a history of atrial fibrillation. He was started on a Cardizem drip and admitted to the hospital for further evaluation. Review of Systems All systems: negative Constitutional: Reports malaise, Reports weakness, Denies chills, Denies fever Eyes: denies blurred vision, denies pain Ears, nose, mouth and throat: Denies headache, Denies sore throat Cardiovascular: Reports chest pain, Reports palpitations, Denies shortness of breath Respiratory: Denies cough Gastrointestinal: Denies abdominal pain, Denies diarrhea, Denies nausea, Denies vomiting Musculoskeletal: Denies myalgias Integumentary: Denies pruritus, Denies rash Neurological: Denies numbness, Denies weakness Psychiatric: Denies anxiety, Denies depression Endocrine: Denies fatigue, Denies weight change Past Medical History Past Medical History: Diabetes Mellitus, Hypertension Additional Past Medical History / Comment(s): hypertrophic cardiomyopathy, see Dr Priest H & P. SINUS ALLERGIES PER PATIENT History of Any Multi-Drug Resistant Organisms: None Reported Past Surgical History: Ablation, AICD Additional Past Surgical History / Comment(s): ICD implant Past Anesthesia/Blood Transfusion Reactions: No Reported Reaction Type of Cardiac Device: AICD Device Placement Date:: 2014 Past Psychological History: Anxiety Smoking Status: Former smoker Past Alcohol Use History: Occasional Additional Past Alcohol Use History / Comment(s): pt states very rare ETOH intake, last drink was approx. 3 weeks ago. Past Drug Use History: None Reported - Past Family History Father Family Medical History: Cancer, Coronary Artery Disease (CAD), Hyperlipidemia, Myocardial Infarction ([place]) Additional Family Medical History / Comment(s): lymphoma Mother Family Medical History: Pulmonary Embolus, Renal Disease Brother(s) Family Medical History: Myocardial Infarction ([place]) Medications and Allergies Home Medications Medication Instructions Recorded Confirmed Type ALPRAZolam [Alprazolam] 0.25 mg PO DAILY PRN 05/17/16 04/25/20 History metFORMIN HCL 500 mg PO BID 03/05/17 04/25/20 History Acetaminophen Tab [Tylenol] 1,000 mg PO Q6HR PRN 04/25/20 04/25/20 History Apixaban [Eliquis] 5 mg PO BID #60 tab 04/25/20 Rx Losartan Potassium 12.5 mg PO HS 04/25/20 04/25/20 History Metoprolol Succinate (ER) [Toprol 200 mg PO DAILY #60 tab 04/25/20 Rx XL] Rosuvastatin Calcium [Crestor] 5 mg PO DAILY 04/25/20 04/25/20 History Allergies Allergy/AdvReac Type Severity Reaction Status Date / Time No Known Allergies Allergy Verified 04/25/20 06:54 Physical Exam Vitals: General: well developed, well nourished, NAD HEENT: NC/AT, mmm Neck: supple, no JVD, no thyromegaly CV: Irregularly irregular, no murmur. Pulses 2+ Lungs: normal effort, clear throughout Abd: soft, nontender, non distended Neuro: alert and oriented x3, no focal deficits Skin: warm and dry Results CBC & Chem 7: 04/25/20 03:19 04/25/20 03:19 Thrombosis Risk Factor Assmnt - Choose All That Apply Any of the Below Risk Factors Present?: Yes Each Factor Represents 1 point: Age 41-60 years, Obesity (BMI >25) Thrombosis Risk Factor Assessment Total Risk Factor Score: 2 Thrombosis Risk Factor Assessment Level: Low Risk Assessment and Plan Plan: 1. Atrial fibrillation with RVR. Admit and consult to Cardiology. Continue diltiazem drip for now. Start eliquis for anticoagulation
--- NOTE | 2020-05-01 09:04 | P.DS ---
Providers Date of admission: 04/25/20 04:14 Expected date of discharge: 04/25/20 Attending physician: Russel Falcon MD Consults: 04/25/20 04:14 Consult Physician Urgent Consulting Provider: Ricardo Priest Consult Reason/Comments: afib Do you want consulting provider notified?: Yes Primary care physician: [facility] Course: Ajit Moura is a 50 yo male with a past medical history significant for ventricular tachycardia with previous ablation and AICD implantation, hypertension, hyperlipidemia, and diabetes mellitus who presented to the ED complaining of chest pain and palpitations. Patient reports he began having palpitations around 3 AM. He states he could feel his heart beating very fast and noticed it was also irregular. He states he took an extra dose of his short acting beta michell and also took a Xanax but the palpitations persisted. He reports some shortness of breath with the palpitations. He denies any chest pain. Patient then presented to the emergency room for further evaluation. The patient was noted to be in A. fib with RVR. The patient does not have a history of atrial fibrillation. Pt was admitted to medicine and seen by Cardiology. He was started on eliquis for anticoagulation. His metoprolol was increased. Pt's rate was adequately controlled and he is discharged in stable condition and recommended to follow up with his PCP and Lens Grinder Apprentice. Patient Condition at Discharge: Serious Plan - Discharge Summary Discharge Rx Participant: Yes New Discharge Prescriptions: New Apixaban [Eliquis] 5 mg PO BID #60 tab Metoprolol Succinate (ER) [Toprol XL] 200 mg PO DAILY #60 tab Continue ALPRAZolam [Alprazolam] 0.25 mg PO DAILY PRN PRN Reason: Anxiety metFORMIN HCL 500 mg PO BID Acetaminophen Tab [Tylenol] 1,000 mg PO Q6HR PRN PRN Reason: Pain Rosuvastatin Calcium [Crestor] 5 mg PO DAILY Losartan Potassium 12.5 mg PO HS Discontinued Metoprolol Succinate (ER) [Toprol XL] 150 mg PO DAILY Discharge Medication List ALPRAZolam [Alprazolam] 0.25 mg PO DAILY PRN 05/17/16 [History] metFORMIN HCL 500 mg PO BID 03/05/17 [History] Acetaminophen Tab [Tylenol] 1,000 mg PO Q6HR PRN 04/25/20 [History] Apixaban [Eliquis] 5 mg PO BID #60 tab 04/25/20 [Rx] Losartan Potassium 12.5 mg PO HS 04/25/20 [History] Metoprolol Succinate (ER) [Toprol XL] 200 mg PO DAILY #60 tab 04/25/20 [Rx] Rosuvastatin Calcium [Crestor] 5 mg PO DAILY 04/25/20 [History] Follow up Appointment(s)/Referral(s): Ricardo Priest MD [STAFF PHYSICIAN] - 1 Week (will call for follow-up.) Adina Falcon DO [Primary Care Provider] - 1-2 days Patient Instructions/Handouts: A-fib (Atrial Fibrillation) (DC) Discharge Disposition: HOME SELF-CARE
== END 2020-04-25 11:45 | disposition home or self-care (01) | DRG 310 ==
LOC: EC 02:47 → 3SCARD 04:14
PROVIDERS: ADMIT Family Medicine; ATTEND Family Medicine
DX: I48.91 Unspecified atrial fibrillation (principal); E11.9 Type 2 diabetes mellitus without complications; E66.9 Obesity, unspecified; E78.5 Hyperlipidemia, unspecified; I10 Essential (primary) hypertension; I42.2 Other hypertrophic cardiomyopathy; I47.1 Supraventricular tachycardia; Z68.37 Body mass index [BMI] 37.0-37.9, adult; Z79.01 Long term (current) use of anticoagulants; Z79.82 Long term (current) use of aspirin; Z79.84 Long term (current) use of oral hypoglycemic drugs; Z79.899 Other long term (current) drug therapy; Z80.7 Family history of other malignant neoplasms of lymphoid, hematopoietic and related tissues; Z82.49 Family history of ischemic heart disease and other diseases of the circulatory system; Z86.79 Personal history of other diseases of the circulatory system; Z87.891 Personal history of nicotine dependence; Z95.810 Presence of automatic (implantable) cardiac defibrillator; I08.1 Rheumatic disorders of both mitral and tricuspid valves; Z83.2 Family history of diseases of the blood and blood-forming organs and certain disorders involving the immune mechanism; Z20.822 Contact with and (suspected) exposure to COVID-19
CPT/HCPCS: 36415; 71046; 80053; 82550; 82553; 83690; 83735; 83880; 84443; 84484; 85025; 85610; 85730; 87635; 93005; 96374; 96375; 99285

== ENCOUNTER 2022-05-21 17:57 | Emergency (ER) | payer BC ==
--- NOTE | 2022-05-21 19:15 | ED ---
Arrhythmia/Palpitations HPI - General Source: patient, RN notes reviewed Mode of arrival: ambulatory Limitations: no limitations <Celio Sky - Last Filed: 05/21/22 19:15> <Lindsay Pedersen - Last Filed: 05/21/22 23:00> - General Chief Complaint: Arrhythmia/Palpitations Stated Complaint: chest pain Time Seen by Provider: 05/21/22 19:15 - History of Present Illness Initial Comments: Patient is a 52-year-old male presenting with chief complaint of palpitations. Patient states that he has a history of PVCs, states that over the past few days she has noticed an increase in his symptoms. Patient has history of HCM, has an appointment with his maritime pilot tomorrow morning. (Celio Sky) I agree with the above HPI. Patient has HCM with defibrillator. States he currently has upper respiratory infection which seems to increase his PVCs. Reports increased PVCs over the past few days. No chest pain or shortness of breath. No fever, back pain, abdominal pain, nausea, vomiting. Patient spoke with Dr. Priest who told him to go to the emergency department for evaluation. (Lindsay Pedersen) - Related Data Home Medications Medication Instructions Recorded Confirmed Losartan [Cozaar] 12.5 mg PO HS 03/01/21 03/01/21 Multivitamin [Multivitamins Adult 2 tab PO HS 03/01/21 03/01/21 Gummies] Rosuvastatin Calcium [Crestor] 10 mg PO DAILY 03/01/21 03/01/21 metFORMIN HCL ER [Glucophage XR] 500 mg PO DAILY 03/01/21 03/01/21 Previous Rx's Medication Instructions Recorded Apixaban [Eliquis] 5 mg PO BID #60 tab 04/25/20 Metoprolol Succinate (ER) [Toprol 200 mg PO DAILY #60 tab 04/25/20 XL] Allergies Allergy/AdvReac Type Severity Reaction Status Date / Time No Known Allergies Allergy Verified 05/21/22 18:08 Review of Systems ROS Other: All systems not noted in ROS Statement are negative. <Celio Sky - Last Filed: 05/21/22 19:15> ROS Other: All systems not noted in ROS Statement are negative. <Lindsay Pedersen - Last Filed: 05/21/22 23:00> ROS Statement: Those systems with pertinent positive or pertinent negative responses have been documented in the HPI. Past Medical History Past Medical History: Coronary Artery Disease (CAD), Diabetes Mellitus, Hypertension Additional Past Medical History / Comment(s): hypertrophic cardiomyopathy, see Dr Priest H & P. SINUS ALLERGIES PER PATIENT. hx of Afib and PVC History of Any Multi-Drug Resistant Organisms: None Reported Past Surgical History: Ablation, AICD Additional Past Surgical History / Comment(s): ICD implant Past Anesthesia/Blood Transfusion Reactions: No Reported Reaction Type of Cardiac Device: AICD Device Placement Date:: 2014 Past Psychological History: Anxiety Smoking Status: Never smoker Past Alcohol Use History: Occasional Past Drug Use History: None Reported - Past Family History Father Family Medical History: Cancer, Coronary Artery Disease (CAD), Hyperlipidemia, Myocardial Infarction (NM) Additional Family Medical History / Comment(s): lymphoma Mother Family Medical History: Pulmonary Embolus, Renal Disease Brother(s) Family Medical History: Myocardial Infarction (NM) <Celio Sky - Last Filed: 05/21/22 19:15> General Exam Limitations: no limitations <Celio Sky - Last Filed: 05/21/22 19:15> General appearance: alert Head exam: Present: atraumatic, normocephalic, normal inspection Respiratory exam: Present: normal lung sounds bilaterally. Absent: respiratory distress, wheezes, rales, rhonchi, stridor Cardiovascular Exam: Present: regular rate, normal heart sounds, other (regularly irregular rhythm ). Absent: systolic murmur, diastolic murmur, rubs, gallop, clicks GI/Abdominal exam: Present: soft, normal bowel sounds. Absent: distended, tenderness, guarding, rebound, rigid Neurological exam: Present: alert, oriented X3, CN II-XII intact Psychiatric exam: Present: normal affect, normal mood Skin exam: Present: warm, dry, intact, normal color. Absent: rash <Lindsay Pedersen - Last Filed: 05/21/22 23:00> - General Exam Comments Initial Comments: Visual Physical Exam Vital signs reviewed General: Well-appearing, nontoxic, no acute distress. Head: Normocephalic, atraumatic Eyes: PERRLA, EOMI ENT: Airway patent Chest: Nonlabored breathing Skin: No visual rash, normal skin tone Neuro: Alert and oriented 3 Musculoskeletal: No gross abnormalities (Celio Sky) Course Vital Signs 05/21/22 05/21/22 18:04 21:31 Temperature 98.3 F 98.1 F Pulse Rate 75 74 Respiratory 18 16 Rate Blood Pressure 133/91 125/69 O2 Sat by Pulse 98 98 Oximetry Medical Decision Making - Lab Data Result diagrams: 05/21/22 20:00 05/21/22 20:00 <Lindsay Pedersen - Last Filed: 05/21/22 23:00> - Medical Decision Making EKG taken at 18:10, interpreted by me Sinus rhythm with occasional supraventricular premature complexes. Normal axis Ventricular rate 69, KS interval 141, QRS duration 84, QTc 386 Was pt. sent in by a medical professional or institution (, PA, SMOKING PIPE COATER, urgent care, hospital, or [facility]...) When possible be specific @ -No Did you speak to anyone other than the patient for history (EMS, parent, family, police, friend...)? What history was obtained from this source @ -No Did you review nursing and triage notes (agree or disagree)? Why? @ -I reviewed and agree with nursing and triage notes Were old charts reviewed (outside hosp., previous admission, EMS record, old EKG, old radiological studies, urgent care reports/EKG's, [facility] records)? Report findings @ -No old charts were reviewed Differential Diagnosis (chest pain, altered mental status, abdominal pain women, abdominal pain men, vaginal bleeding, weakness, fever, dyspnea, syncope, headache, dizziness, GI bleed, back pain, seizure, CVA, palpatations, mental health)? @ -Differential Palpitations Ventricular arrhythmias, atrial arrhythmias, myocardial infarction, anemia, thyrotoxicosis, electrolyte imbalance, hypokalemia, pulmonary embolism, pulmonary disease, drugs, alcohol, anxiety, stress.... This is not meant to be an all-inclusive list. EKG interpreted by me (3pts min.). @ -As above X-rays interpreted by me (1pt min.). @ Yes chest x-ray negative for acute process. CT interpreted by me (1pt min.). @ -None done U/S interpreted by me (1pt. min.). @ -None done What testing was considered but not performed or refused? (CT, X-rays, U/S, labs)? Why? @ -None What meds were considered but not given or refused? Why? @ -None Did you discuss the management of the patient with other professionals (professionals i.e. , PA, SMOKING PIPE COATER, lab, RT, psych nurse, social group worker, legal associate, teacher, project control officer, outsole caser)? Give summary @ -Dr. Gutiérrez spoke with Dr. Tadeo who recommended discharge with follow-up in the office tomorrow as planned. Was smoking cessation discussed for >3mins.? @ -No Was critical care preformed (if so, how long)? @ -No Were there social determinants of health that impacted care today? How? (Homelessness, low income, unemployed, alcoholism, drug addiction, transportation, low edu. Level, literacy, decrease access to med. care, [facility], rehab)? @ -No Was there de-escalation of care discussed even if they declined (Discuss DNR or withdrawal of care, Hospice)? DNR status @ -No What co-morbidities impacted this encounter? (DM, HTN, Smoking, COPD, CAD, Cancer, CVA, ARF, Chemo, Hep., AIDS, mental health diagnosis, sleep apnea, morbid obesity)? @ -None Was patient admitted / discharged? Hospital course, mention meds given and route, prescriptions, significant lab abnormalities, going to OR and other pertinent info. @ -patient presenting with palpitations. No chest pain, no shortness of breath. Patient is hemodynamically stable. EKG shows sinus rhythm with occasional PVCs. Defibrillator was interrogated. There are no episodes of V. tach. Last episode was in October 2020. Troponin within normal limits. Chest x-ray negative for acute process. Case discussed with Dr. Tadeo who who recommends discharge to plan to follow up with Dr. Priest. Disposition options discussed with patient. Patient feels comfortable going home. He is discharged in stable condition. new problem with uncertain prognosis? @ -No Drug Therapy requiring intensive monitoring for toxicity (Heparin, Nitro, Insulin, Cardizem)? @ -No Were any procedures done? @ -No Diagnosis/symptom? @ -palpitations, PVCs Acute, or Chronic, or Acute on Chronic? @ -acute Uncomplicated (without systemic symptoms) or Complicated (systemic symptoms)? @ -uncomplicated Side effects of treatment? @ -No Exacerbation, Progression, or Severe Exacerbation? @ -No Poses a threat to life or bodily function? How? (Chest pain, USA, NM, pneumonia, PE, COPD, DKA, ARF, appy, cholecystitis, CVA, Diverticulitis, Homicidal, Suicidal, threat to staff... and all critical care pts) @ -No Dr. Gutiérrez is my attending (Lindsay Pedersen) - Lab Data Lab Results 05/21/22 05/21/22 05/21/22 Range/Units 20:00 20:00 20:00 WBC 7.9 (3.8-10.6) k/uL RBC 5.16 (4.30-5.90) m/uL Hgb 16.2 (13.0-17.5) gm/dL Hct 47.1 (39.0-53.0) % MCV 91.4 (80.0-100.0) fL MCH 31.4 (25.0-35.0) pg MCHC 34.3 (31.0-37.0) g/dL RDW 12.1 (11.5-15.5) % Plt Count 169 (150-450) k/uL MPV 7.4 Neutrophils % 60 % Lymphocytes % 28 % Monocytes % 6 % Eosinophils % 4 % Basophils % 1 % Neutrophils # 4.7 (1.3-7.7) k/uL Lymphocytes # 2.2 (1.0-4.8) k/uL Monocytes # 0.5 (0-1.0) k/uL Eosinophils # 0.3 (0-0.7) k/uL Basophils # 0.1 (0-0.2) k/uL PT 11.5 (9.0-12.0) sec INR 1.1 (<1.2) APTT 26.2 (22.0-30.0) sec Sodium (137-145) mmol/L Potassium (3.5-5.1) mmol/L Chloride (98-107) mmol/L Carbon Dioxide (22-30) mmol/L Anion Gap mmol/L BUN (9-20) mg/dL Creatinine (0.66-1.25) mg/dL Est GFR (CKD-EPI)AfAm (>60 ml/min/1.73 sqM) Est GFR (CKD-EPI)NonAf (>60 ml/min/1.73 sqM) Glucose (74-99) mg/dL Calcium (8.4-10.2) mg/dL Magnesium (1.6-2.3) mg/dL Total Bilirubin (0.2-1.3) mg/dL AST (17-59) U/L ALT (4-49) U/L Alkaline Phosphatase (38-126) U/L Troponin I (0.000-0.034) ng/mL Total Protein (6.3-8.2) g/dL Albumin (3.5-5.0) g/dL TSH (0.465-4.680) mIU/L Urine Opiates Screen Not Detected (NotDetected) Ur Oxycodone Screen Not Detected (NotDetected) Urine Methadone Screen Not Detected (NotDetected) Ur Propoxyphene Screen Not Detected (NotDetected) Ur Barbiturates Screen Not Detected (NotDetected) U Tricyclic Antidepress Not Detected (NotDetected) Ur Phencyclidine Scrn Not Detected (NotDetected) Ur Amphetamines Screen Not Detected (NotDetected) U Methamphetamines Scrn Not Detected (NotDetected) U Benzodiazepines Scrn Detected H (NotDetected) Urine Cocaine Screen Not Detected (NotDetected) U Marijuana (THC) Screen Not Detected (NotDetected) Coronavirus (PCR) (Not Detectd) 05/21/22 05/21/22 05/21/22 Range/Units 20:00 20:00 20:29 WBC (3.8-10.6) k/uL RBC (4.30-5.90) m/uL Hgb (13.0-17.5) gm/dL Hct (39.0-53.0) % MCV (80.0-100.0) fL MCH (25.0-35.0) pg MCHC (31.0-37.0) g/dL RDW (11.5-15.5) % Plt Count (150-450) k/uL MPV Neutrophils % % Lymphocytes % % Monocytes % % Eosinophils % % Basophils % % Neutrophils # (1.3-7.7) k/uL Lymphocytes # (1.0-4.8) k/uL Monocytes # (0-1.0) k/uL Eosinophils # (0-0.7) k/uL Basophils # (0-0.2) k/uL PT (9.0-12.0) sec INR (<1.2) APTT (22.0-30.0) sec Sodium 136 L (137-145) mmol/L Potassium 4.5 (3.5-5.1) mmol/L Chloride 105 (98-107) mmol/L Carbon Dioxide 22 (22-30) mmol/L Anion Gap 9 mmol/L BUN 14 (9-20) mg/dL Creatinine 0.48 L (0.66-1.25) mg/dL Est GFR (CKD-EPI)AfAm >90 (>60 ml/min/1.73 sqM) Est GFR (CKD-EPI)NonAf >90 (>60 ml/min/1.73 sqM) Glucose 160 H (74-99) mg/dL Calcium 9.2 (8.4-10.2) mg/dL Magnesium 1.8 (1.6-2.3) mg/dL Total Bilirubin 1.4 H (0.2-1.3) mg/dL AST 51 (17-59) U/L ALT 61 H (4-49) U/L Alkaline Phosphatase 48 (38-126) U/L Troponin I <0.012 (0.000-0.034) ng/mL Total Protein 7.2 (6.3-8.2) g/dL Albumin 4.3 (3.5-5.0) g/dL TSH 2.600 (0.465-4.680) mIU/L Urine Opiates Screen (NotDetected) Ur Oxycodone Screen (NotDetected) Urine Methadone Screen (NotDetected) Ur Propoxyphene Screen (NotDetected) Ur Barbiturates Screen (NotDetected) U Tricyclic Antidepress (NotDetected) Ur Phencyclidine Scrn (NotDetected) Ur Amphetamines Screen (NotDetected) U Methamphetamines Scrn (NotDetected) U Benzodiazepines Scrn (NotDetected) Urine Cocaine Screen (NotDetected) U Marijuana (THC) Screen (NotDetected) Coronavirus (PCR) Not Detected (Not Detectd) Disposition <Celio Sky - Last Filed: 05/21/22 19:15> Is patient prescribed a controlled substance at d/c from ED?: No Time of Disposition: 21:24 <Lindsay Pedersen - Last Filed: 05/21/22 23:00> Clinical Impression: PVC (premature ventricular contraction), Palpitation Disposition: HOME SELF-CARE Condition: Good Instructions (If sedation given, give patient instructions): Heart Palpitations (ED) Additional Instructions: Follow-up with Dr. Priest tomorrow as planned. Return to emergency department if you experience new, concerning, or worsening symptoms Referrals: Adina Falcon DO [Primary Care Provider] - 1-2 days
--- NOTE | 2022-05-21 20:06 | XR ---
EXAMINATION TYPE: XR chest 2V DATE OF EXAM: 05/21/2022 7:34 PM COMPARISON: Chest radiographs from 03/01/2021 TECHNIQUE: XR chest 2V Frontal and lateral views of the chest. CLINICAL INDICATION:Male, 52 years old with history of dysrhythmia; FINDINGS: Lungs/Pleura: There is no evidence of pleural effusion, focal consolidation, or pneumothorax. Pulmonary vascularity: Unremarkable. Heart/mediastinum: Cardiomediastinal silhouette is unremarkable. Single-lead cardiac conduction devic e overlying the left hemithorax with lead projecting over the right ventricle. Musculoskeletal: No acute osseous pathology. IMPRESSION: No acute cardiopulmonary disease/process.
[2022-05-21 20:11] LABS: Basophils # (A) 0.1 k/uL (0-0.2); Basophils % (A) 1 %; Eosinophils # (A) 0.3 k/uL (0-0.7); Eosinophils % (A) 4 %; HCT 47.1 % (39.0-53.0); HGB 16.2 gm/dL (13.0-17.5); Lymphocytes # (A) 2.2 k/uL (1.0-4.8); Lymphocytes % (A) 28 %; MCH 31.4 pg (25.0-35.0); MCHC 34.3 g/dL (31.0-37.0); MCV 91.4 fL (80.0-100.0); Mean Platelet Volume 7.4; Monocytes # (A) 0.5 k/uL (0-1.0); Monocytes % (A) 6 %; Neutrophils # (A) 4.7 k/uL (1.3-7.7); Neutrophils % (A) 60 %; Platelet Count 169 k/uL (150-450); RBC 5.16 m/uL (4.30-5.90); RDW 12.1 % (11.5-15.5); WBC 7.9 k/uL (3.8-10.6)
[2022-05-21 20:21] LABS: ALT 61 U/L (4-49); AST 51 U/L (17-59); African American GFR (CKD) >90 (>60 ml/min/1.73 sqM); Albumin 4.3 g/dL (3.5-5.0); Alkaline Phosphatase 48 U/L (38-126); Anion Gap 9 mmol/L; Blood Urea Nitrogen 14 mg/dL (9-20); Calcium 9.2 mg/dL (8.4-10.2); Carbon Dioxide 22 mmol/L (22-30); Chloride 105 mmol/L (98-107); Glucose 160 mg/dL (74-99); Magnesium 1.8 mg/dL (1.6-2.3); Non-African American GFR(CKD) >90 (>60 ml/min/1.73 sqM); Potassium 4.5 mmol/L (3.5-5.1); Sodium 136 mmol/L (137-145); Total Bilirubin 1.4 mg/dL (0.2-1.3); Total Protein 7.2 g/dL (6.3-8.2)
[2022-05-21 20:22] LABS: INR 1.1 (<1.2); Partial Thromboplastin Time 26.2 sec (22.0-30.0); Prothrombin Time 11.5 sec (9.0-12.0)
[2022-05-21 21:32] VITALS: BP 125/69; PULSE 74; RESP 16; TEMP 98.1
[2022-05-21 21:43] LABS: Amphetamine Screen,Urine Not Detected (NotDetected); Barbiturate Screen,Urine Not Detected (NotDetected); Benzodiazepines Screen,Urine Detected (NotDetected); Cocaine Screen,Urine Not Detected (NotDetected); Methadone Screen, Urine Not Detected (NotDetected); Opiate Screen,Urine Not Detected (NotDetected); Oxycodone Screen, Urine Not Detected (NotDetected); Phencyclidine Screen,Urine Not Detected (NotDetected); Tricyclic Antidepressant,Urine Not Detected (NotDetected); Urn Cannabinoid Scrn Not Detected (NotDetected)
== END 2022-05-21 21:34 | disposition home or self-care (01) ==
LOC: EC 17:57
DX: I49.3 Ventricular premature depolarization (principal); R00.2 Palpitations; I25.10 Atherosclerotic heart disease of native coronary artery without angina pectoris; E11.9 Type 2 diabetes mellitus without complications; I10 Essential (primary) hypertension; F41.9 Anxiety disorder, unspecified; Z79.84 Long term (current) use of oral hypoglycemic drugs; Z79.899 Other long term (current) drug therapy; Z20.822 Contact with and (suspected) exposure to COVID-19
CPT/HCPCS: 36415; 71046; 80053; 80306; 83735; 84443; 84484; 85025; 85610; 85730; 87635; 93005; 99285

== ENCOUNTER → 2022-07-16 | Outpatient (CLI) | payer BC ==
[2022-07-16 15:17] LABS: HCT 49.1 % (39.6-50.0); HGB 16.6 g/dL (13.0-17.0); MCH 30.9 pg (27.0-32.0); MCHC 33.8 g/dL (32.0-37.0); MCV 91.4 fL (80.0-97.0); Mean Platelet Volume 10.6 fL (9.5-12.2); NRBC Per 100 WBC 0 /100 WBCS (0.0-0.0); Platelet Count 195 X 10*3/uL (140-440); RBC 5.37 X 10*6/uL (4.40-5.60); RDW 11.9 % (11.5-14.5)
[2022-07-16 15:56] LABS: African American GFR (CKD) 113.4 (60.0-200.0); Albumin 4.9 g/dL (3.8-4.9); Albumin/Globulin Ratio 1.96 (1.60-3.17); Anion Gap 12.9 mmol/L (10.00-18.00); BUN/Creat Ratio 14.89 Ratio (12.00-20.00); Blood Urea Nitrogen 13.4 mg/dL (9.0-27.0); Calcium 9.8 mg/dL (8.7-10.3); Carbon Dioxide 25.1 mmol/L (20.0-27.5); Globulin 2.5 g/dL (1.6-3.3); Non-African American GFR(CKD) 97.9 (60.0-200.0); Potassium 4.6 mmol/L (3.5-5.5); Total Bilirubin 1.9 mg/dL (0.30-1.20); Total Protein 7.4 g/dL (6.2-8.2)
[2022-07-16 22:04] LABS: Cryptosporidium Antigen Negative (Negative)
== END | disposition home or self-care (01) ==
LOC: LABWHC1 07:56
PROVIDERS: ATTEND Physician Assistant
DX: E86.0 Dehydration (principal); R19.7 Diarrhea, unspecified
CPT/HCPCS: 36415; 80053; 82150; 83690; 85027; 87045; 87046; 87328; 87329

== ENCOUNTER 2022-09-24 09:19 | Day surgery (SDC) | payer BC ==
[2022-09-24] MEDS: LACTATED RINGERS 1,000 ML IV SCH ×2 (09:26→10:54)
[2022-09-24 09:48] VITALS: RESP 18; TEMP 133.1
[2022-09-24 09:49] LABS: Glucose,Whole Blood 169 mg/dL (70-110)
[2022-09-24] MEDS ORDERED: LIDOCAINE 2% INJ 20 MG/ML (2 ML VIAL) ONE (10:55)
[2022-09-24] MEDS ORDERED: KETAMINE 10 MG/ML 20 ML VIAL ONE (10:55)
[2022-09-24] MEDS ORDERED: PROPOFOL 10 MG/ML 20 ML VIAL IV ONE (10:55)
--- NOTE | 2022-09-24 11:12 | P.PCN ---
Date of Procedure: 09/24/22 Procedure(s) Performed: BRIEF HISTORY: Patient is a 52-year-old pleasant white male scheduled for an elective colonoscopy as a part of screening for colon cancer. PROCEDURE PERFORMED: Colonoscopy with snare polypectomy. PREOPERATIVE DIAGNOSIS: Screening for colon cancer. IV sedation per Anesthesia. PROCEDURE: After informed consent was obtained, the patient, was brought into the endoscopy unit. IV sedation was administered by Anesthesia under continuous monitoring. Digital rectal examination was normal. Initially the Olympus CF-160 flexible video colonoscope was then inserted in the rectum, gradually advanced into the cecum without any difficulty. Careful examination was performed as the scope was gradually being withdrawn. Ileocecal valve and the appendiceal orifice were visualized and appeared normal. Prep was excellent. Mucosa of the cecum, ascending colon, appeared normal. In the transverse colon there was a 3 mm polyp that was removed by snare polypectomy. Rest of the transverse colon, descending colon appeared normal. In the sigmoid: There was a 5 limited polyp removed by snare polypectomy. Scattered left-sided diverticulosis seen. Mucosa of the sigmoid colon, and rectum appeared normal. Retroflexion was performed in the rectum and no lesions were seen. The patient tolerated the procedure well. IMPRESSION: 3 mm Transverse colon polyp status post cold snare polypectomy 5 mm; sigmoid polyp status post polypectomy RECOMMENDATIONS: Findings of this examination were discussed with the patient as well as his family. He was advised to follow with the biopsy results. If the biopsy result adenoma he can have a repeat colonoscopy in 5 years..
[2022-09-24 11:35] VITALS: BP 149/90; PULSE 60
== END 2022-09-24 11:47 | disposition home or self-care (01) ==
LOC: ORWHC2ENDO 09:19
PROVIDERS: ATTEND Internal Medicine Gastroenterology
DX: Z12.11 Encounter for screening for malignant neoplasm of colon (principal); D12.3 Benign neoplasm of transverse colon; K57.30 Diverticulosis of large intestine without perforation or abscess without bleeding; I10 Essential (primary) hypertension; E11.9 Type 2 diabetes mellitus without complications; Z95.810 Presence of automatic (implantable) cardiac defibrillator; Z86.79 Personal history of other diseases of the circulatory system; Z79.899 Other long term (current) drug therapy; I48.91 Unspecified atrial fibrillation; Z79.01 Long term (current) use of anticoagulants
CPT/HCPCS: 88305; 45385; J2704; J2001

== ENCOUNTER 2023-05-06 07:50 | Emergency (ER) | payer BC ==
--- NOTE | 2023-05-06 08:33 | ED ---
General Adult HPI - General Chief complaint: Arrhythmia/Palpitations Stated complaint: Heart Palpitations Time Seen by Provider: 05/06/23 07:53 Source: patient Mode of arrival: ambulatory Limitations: no limitations - History of Present Illness Initial comments: Dictation was produced using [employer] dictation software. please excuse any grammatical, word or spelling errors. Chief Complaint: 53-year-old male presents emergency department for palpitations History of Present Illness: Patient 53-year-old male since January of last year he has been dealing with sensations of palpitations. He was seen by credit processor along with [facility]. He has history of HCM. He was told that his palpitations are secondary to PACs. Is told that any other advanced treatment is not recommended at this point. Over the last week he has been feeling worsening sensations. He does have history of paroxysmal A-fib. He does take anticoagulation medications along with metoprolol. Patient denies any chest pressure or chest pain. No epigastric pain. No shortness of breath. The ROS documented in this emergency department record has been reviewed and confirmed by me. Those systems with pertinent positive or negative responses have been documented in the HPI. All other systems are other negative and/or noncontributory. - Related Data Home Medications Medication Instructions Recorded Confirmed Losartan [Cozaar] 12.5 mg PO HS 03/01/21 09/23/22 Rosuvastatin Calcium [Crestor] 10 mg PO DAILY 03/01/21 09/23/22 Pantoprazole [Protonix] 40 mg PO DAILY 09/23/22 09/23/22 Semaglutide [Ozempic] 0.5 mg SQ TH 09/23/22 09/24/22 Previous Rx's Medication Instructions Recorded Apixaban [Eliquis] 5 mg PO BID #60 tab 04/25/20 Metoprolol Succinate (ER) [Toprol 200 mg PO DAILY #60 tab 04/25/20 XL] Allergies Allergy/AdvReac Type Severity Reaction Status Date / Time No Known Allergies Allergy Verified 05/06/23 07:54 Review of Systems ROS Statement: Those systems with pertinent positive or pertinent negative responses have been documented in the HPI. ROS Other: All systems not noted in ROS Statement are negative. Past Medical History Past Medical History: Coronary Artery Disease (CAD), Diabetes Mellitus, GERD/Reflux Additional Past Medical History / Comment(s): hypertrophic cardiomyopathy, see Dr Priest [facility] & P. SINUS ALLERGIES PER PATIENT. hx of Afib and PVC. meds for BP and cholesterol proctective per pt. liver enzymes slightly elevated being watched, gastric upset with recent use of diabetic meds. History of Any Multi-Drug Resistant Organisms: None Reported Past Surgical History: Ablation, AICD Additional Past Surgical History / Comment(s): AICD implant Past Anesthesia/Blood Transfusion Reactions: No Reported Reaction Type of Cardiac Device: AICD Device Placement Date:: 2014 Past Psychological History: No Psychological Hx Reported Smoking Status: Former smoker Past Alcohol Use History: None Reported Past Drug Use History: None Reported - Past Family History Father Family Medical History: Cancer, Coronary Artery Disease (CAD), Hyperlipidemia, Myocardial Infarction (AL) Additional Family Medical History / Comment(s): lymphoma Mother Family Medical History: Pulmonary Embolus, Renal Disease Brother(s) Family Medical History: Myocardial Infarction (AL) General Exam - General Exam Comments Initial Comments: PHYSICAL EXAM: General Impression: Alert and oriented x3, not in acute distress HEENT: Normocephalic atraumatic, extra-ocular movements intact, pupils equal and reactive to light bilaterally, mucous membranes moist. Cardiovascular: Heart regular rate and rhythm Chest: Able to complete full sentences, no retractions, no tachypnea Abdomen: abdomen soft, non-tender, non-distended, no organomegaly Musculoskeletal: Pulses present and equal in all extremities, no peripheral edema Motor: no focal deficits noted Neurological: CN II-XII grossly intact, no focal motor or sensory deficits noted Skin: Intact with no visualized rashes Psych: Normal affect and mood Limitations: no limitations Course Vital Signs 05/06/23 05/06/23 07:52 09:38 Temperature 97.7 F Pulse Rate 78 74 Respiratory 20 18 Rate Blood Pressure 141/89 126/84 O2 Sat by Pulse 99 96 Oximetry EKG Findings - EKG Comments: EKG Findings:: My EKG interpretation: Ventricular rate 70, sinus rhythm,. 154, cures 85, QTc 383. No CA prolongation, no QTC prolongation, no ST or T-wave changes noted. Overall, this EKG is unremarkable Medical Decision Making - Medical Decision Making Was pt. sent in by a medical professional or institution (, PA, [employer], urgent care, hospital, or senior living...) When possible be specific @ -No Did you speak to anyone other than the patient for history (EMS, parent, family, police, friend...)? What history was obtained from this source @ -No Did you review nursing and triage notes (agree or disagree)? Why? @ -I reviewed and agree with nursing and triage notes Were old charts reviewed (outside hosp., previous admission, EMS record, old EKG, old radiological studies, urgent care reports/EKG's, senior living records)? Report findings @ -No old charts were reviewed Differential Diagnosis (chest pain, altered mental status, abdominal pain women, abdominal pain men, vaginal bleeding, musculoskeletal, weakness, fever, dyspnea, syncope, headache, dizziness, GI bleed, back pain, seizure, CVA, palpatations, mental health)? @ - Differential Palpitations: Ventricular arrhythmias, atrial arrhythmias, myocardial infarction, anemia, thyrotoxicosis, electrolyte imbalance, hypokalemia, pulmonary embolism, pulmonary disease, drugs, alcohol, anxiety, stress.... This is not meant to be an all-inclusive list. EKG interpreted by me (3pts min.). @ -See above X-rays interpreted by me (1pt min.). @ -X-ray of the chest is nonacute CT interpreted by me (1pt min.). @ -None done U/S interpreted by me (1pt. min.). @ -None done What testing was considered but not performed or refused? (CT, X-rays, U/S, labs)? Why? @ -None What meds were considered but not given or refused? Why? @ -None Did you discuss the management of the patient with other professionals (yang hamilton iVilmaeVilma Bowling, PA, [employer], lab, RT, psych nurse, social work professor, leadership program associate, teacher, policy officer, keycase assembler)? Give summary @ -No Was smoking cessation discussed for >3mins.? @ -No Was critical care preformed (if so, how long)? @ -No Were there social determinants of health that impacted care today? How? (Homelessness, low income, unemployed, alcoholism, drug addiction, transportation, low edu. Level, literacy, decrease access to med. care, custodial, rehab)? @ -No Was there de-escalation of care discussed even if they declined (Discuss DNR or withdrawal of care, Hospice)? DNR status @ -No What co-morbidities impacted this encounter? (DM, HTN, Smoking, COPD, CAD, Cancer, CVA, ARF, Chemo, Hep., AIDS, mental health diagnosis, sleep apnea, morbid obesity)? @ -None Was patient admitted / discharged? Hospital course, mention meds given and route, prescriptions, significant lab abnormalities, going to OR and other pertinent info. @ -53-year-old male presents to the emergency department for acute on chronic palpitations. Vital signs upon arrival are within acceptable limits. Patient well-appearing at the bedside. He had seen cardiology from 2 different institutions told him that there is not anything they could do about his condition. Patient blood work is unremarkable. Troponin is negative. Patient states that he will make an appointment [facility] cardiomyopathy expert for further care. Patient has no high risk features. Patient discharged. Undiagnosed new problem with uncertain prognosis? @ -No Drug Therapy requiring intensive monitoring for toxicity (Heparin, Nitro, Insulin, Cardizem)? @ -No Were any procedures done? @ -No Diagnosis/symptom? Acute, or Chronic, or Acute on Chronic? Uncomplicated (without systemic symptoms) or Complicated (systemic symptoms)? @ -Palpitations Side effects of treatment? @ -No Exacerbation, Progression, or Severe Exacerbation? @ -No Poses a threat to life or bodily function? How? (Chest pain, [place], AL, pneumonia, PE, COPD, DKA, ARF, appy, cholecystitis, CVA, Diverticulitis, Homicidal, Suicidal, threat to staff... and all critical care pts) @ -No - Lab Data Result diagrams: 05/06/23 08:33 05/06/23 08:33 Lab Results 05/06/23 05/06/23 05/06/23 Range/Units 08:33 08:33 08:33 WBC 7.3 (3.8-10.6) k/uL RBC 5.34 (4.30-5.90) m/uL Hgb 16.6 (13.0-17.5) gm/dL Hct 47.2 (39.0-53.0) % MCV 88.5 (80.0-100.0) fL MCH 31.0 (25.0-35.0) pg MCHC 35.1 (31.0-37.0) g/dL RDW 12.3 (11.5-15.5) % Plt Count 191 (150-450) k/uL MPV 7.8 Neutrophils % 70 % Lymphocytes % 22 % Monocytes % 5 % Eosinophils % 2 % Basophils % 0 % Neutrophils # 5.1 (1.3-7.7) k/uL Lymphocytes # 1.6 (1.0-4.8) k/uL Monocytes # 0.4 (0-1.0) k/uL Eosinophils # 0.2 (0-0.7) k/uL Basophils # 0.0 (0-0.2) k/uL Sodium 137 (137-145) mmol/L Potassium 4.4 (3.5-5.1) mmol/L Chloride 106 (98-107) mmol/L Carbon Dioxide 20 L (22-30) mmol/L Anion Gap 11 mmol/L BUN 11 (9-20) mg/dL Creatinine 0.61 L (0.66-1.25) mg/dL Est GFR (CKD-EPI)AfAm >90 (>60 ml/min/1.73 sqM) Est GFR (CKD-EPI)NonAf >90 (>60 ml/min/1.73 sqM) Glucose 171 H (74-99) mg/dL Calcium 9.4 (8.4-10.2) mg/dL Magnesium 1.7 (1.6-2.3) mg/dL Troponin I <0.012 (0.000-0.034) ng/mL Disposition Clinical Impression: Palpitations Disposition: HOME SELF-CARE Condition: Good Instructions (If sedation given, give patient instructions): Heart Palpitations (ED) Is patient prescribed a controlled substance at d/c from ED?: No Referrals: Adina Falcon DO [Primary Care Provider] - 1-2 days Time of Disposition: 09:44
[2023-05-06 08:46] LABS: Basophils % (A) 0 %; Eosinophils # (A) 0.2 k/uL (0-0.7); Eosinophils % (A) 2 %; HCT 47.2 % (39.0-53.0); HGB 16.6 gm/dL (13.0-17.5); Lymphocytes # (A) 1.6 k/uL (1.0-4.8); Lymphocytes % (A) 22 %; MCHC 35.1 g/dL (31.0-37.0); MCV 88.5 fL (80.0-100.0); Mean Platelet Volume 7.8; Monocytes # (A) 0.4 k/uL (0-1.0); Monocytes % (A) 5 %; Neutrophils # (A) 5.1 k/uL (1.3-7.7); Neutrophils % (A) 70 %; Platelet Count 191 k/uL (150-450); RBC 5.34 m/uL (4.30-5.90); RDW 12.3 % (11.5-15.5); WBC 7.3 k/uL (3.8-10.6)
[2023-05-06 08:55] LABS: African American GFR (CKD) >90 (>60 ml/min/1.73 sqM); Anion Gap 11 mmol/L; Blood Urea Nitrogen 11 mg/dL (9-20); Calcium 9.4 mg/dL (8.4-10.2); Carbon Dioxide 20 mmol/L (22-30); Chloride 106 mmol/L (98-107); Glucose 171 mg/dL (74-99); Magnesium 1.7 mg/dL (1.6-2.3); Non-African American GFR(CKD) >90 (>60 ml/min/1.73 sqM); Potassium 4.4 mmol/L (3.5-5.1); Sodium 137 mmol/L (137-145)
--- NOTE | 2023-05-06 08:56 | XR ---
EXAMINATION TYPE: XR chest 1V portable DATE OF EXAM: 05/06/2023 COMPARISON: 05/21/2022 HISTORY: Heart palpitations TECHNIQUE: Single frontal view of the chest is obtained. FINDINGS: There is no focal air space opacity, pleural effusion, or pneumothorax seen. The cardiac silhouette size is within normal limits. The osseous structures are intact. Findings vague increase d density along the upper margin of the right upper lobe may be related to superimposed structures. A single lead cardiac device appears in good position. IMPRESSION: No acute process.
[2023-05-06 09:00] VITALS: TEMP 97.7
[2023-05-06 10:11] VITALS: BP 126/84; PULSE 74; RESP 18
== END 2023-05-06 09:51 | disposition home or self-care (01) ==
LOC: EC 07:50
DX: R00.2 Palpitations (principal); Z87.891 Personal history of nicotine dependence
CPT/HCPCS: 36415; 71045; 80048; 83735; 84484; 85025; 93005; 99285

== ENCOUNTER → 2024-08-09 | Outpatient (CLI) | payer BC ==
[2024-08-09 15:18] LABS: Blood Urea Nitrogen 7.2 mg/dL (9.0-27.0); Carbon Dioxide 21.8 mmol/L (21.6-31.8); Chloride 108 mmol/L (96-109); Potassium 4.6 mmol/L (3.5-5.5); Sodium 140 mmol/L (135-145)
[2024-08-09 15:19] LABS: HCT 45.3 % (39.6-50.0); HGB 15.5 g/dL (13.0-17.0); MCH 31.1 pg (27.0-32.0); MCHC 34.2 g/dL (32.0-37.0); Mean Platelet Volume 10.6 FL (9.5-12.2); NRBC Per 100 WBC 0 X 10*3/uL (0.00-0.01); Platelet Count 217 X 10*3/uL (140-440); RBC 4.98 X 10*6/uL (4.40-5.60); RDW 12.3 % (11.5-14.5); WBC 6.44 X 10*3/uL (4.50-10.00)
== END | disposition home or self-care (01) ==
LOC: LABPAT 10:35
PROVIDERS: ATTEND Internal Medicine Clinical Cardiac Electrophysiology
DX: Z01.812 Encounter for preprocedural laboratory examination (principal); I48.19 Other persistent atrial fibrillation
CPT/HCPCS: 80051; 82565; 84520; 85027

== ENCOUNTER 2024-08-17 11:00 | Day surgery (SDC) | payer BC ==
[2024-08-17] MEDS: SODIUM CHLORIDE 0.9% 1,000 ML IV SCH (11:17)
[2024-08-17] MEDS: IV FLUID CONTINUATION 1,000 ML IV ONE (11:27)
[2024-08-17 11:30] LABS: Glucose,Whole Blood 137 mg/dL (70-110)
[2024-08-17] MEDS ORDERED: FUROSEMIDE 10 MG/ML 2 ML VIAL ONE (11:54)
[2024-08-17] MEDS ORDERED: SUCCINYLCHOLINE CHLORIDE 200 MG/10 ML VIAL IV ONE (11:54)
[2024-08-17] MEDS ORDERED: MIDAZOLAM 2 MG/2 ML VIAL ONE (11:54)
[2024-08-17] MEDS ORDERED: PROPOFOL 10 MG/ML 20 ML VIAL IV ONE (11:54)
[2024-08-17] MEDS ORDERED: HEPARIN SODIUM,PORCINE 10,000 UNIT/ML 1 ML VIAL ONE (11:54)
[2024-08-17] MEDS ORDERED: ONDANSETRON 4 MG/2 ML VIAL ONE (11:54)
[2024-08-17] MEDS ORDERED: PHENYLEPHRINE-0.9% NACL SYG 1,000 MCG/10 ML SYRINGE ONE (11:54)
[2024-08-17] MEDS ORDERED: PHENYLEPHRINE 10 MG/ML VIAL ONE (11:54)
[2024-08-17] MEDS ORDERED: LIDOCAINE 1% INJ 10MG/ML (20 ML MDV) ONE (11:54)
[2024-08-17] MEDS ORDERED: fentaNYL (PF) 50 MCG/ML 2 ML AMP ONE (11:54)
[2024-08-17] MEDS ORDERED: ROCURONIUM 10 MG/ML (5 ML VIAL) IV ONE (11:54)
[2024-08-17 12:27] LABS: African American GFR (CKD) >90 (>60 ml/min/1.73 sqM); Anion Gap 11 mmol/L; Blood Urea Nitrogen 11 mg/dL (9-20); Calcium 9.4 mg/dL (8.4-10.2); Carbon Dioxide 26 mmol/L (22-30); Chloride 105 mmol/L (98-107); Glucose 140 mg/dL (74-99); Non-African American GFR(CKD) >90 (>60 ml/min/1.73 sqM); Sodium 142 mmol/L (137-145)
[2024-08-17] MEDS: HEPARIN SOD,PORK IN 0.45% NACL 25,000 UNIT in 0.45% NACL 1 250ML.BAG IV ONE (12:33)
[2024-08-17] MEDS: LIDOCAINE 1% INJ 10MG/ML (20 ML MDV) SQ ONE (12:39)
[2024-08-17 12:47] LABS: Potassium 4.6 mmol/L (3.5-5.1)
[2024-08-17] MEDS: HEPARIN SODIUM (1,000 UNIT/ML) 1,000 UNIT in SODIUM CHLORIDE 0.9% 1,000 ML IRRIGATION ONE (14:49)
[2024-08-17] MEDS: LACTATED RINGERS 1,000 ML IV ONE (15:21)
[2024-08-17] MEDS ORDERED: PANTOPRAZOLE 40 MG TABLET PO PRN (15:43)
[2024-08-17] MEDS ORDERED: ACETAMINOPHEN TAB 325 MG TAB PO PRN (15:44)
[2024-08-17 15:51] LABS: Glucose,Whole Blood 142 mg/dL (70-110)
[2024-08-17] MEDS: IOPAMIDOL-370 100ML BTL INJ ONE (15:58)
--- NOTE | 2024-08-17 16:41 | P.EPPROC ---
- EP Procedure Note Electrophysiology Procedure Note: PROCEDURE A. fib ablation with entry-level PVI, left atrial septal ablation and left atrial roof ablation including upper posterior wall of the LA DIAGNOSIS Persistent atrial fibrillation, symptomatic, refractory to therapy. Currently on oral amiodarone RESULT No left atrial appendage mass seen on intracardiac echo. Large pulmonary veins normal left atrial size Successful A. fib ablation/pulmonary vein isolation of all veins using cryo- ablation Complete entrance block in all 4 veins confirmed No evidence for phrenic nerve injury Left atrial septal ablation Left atrial roof ablation including upper posterior wall Esophageal deflection NO PROCEDURE DETAILS Written informed consent prior to procedure. Patient brought to the EP lab. General anesthesia given. Heparin administered. A city maintained above 300 seconds Both groins prepped and draped per protocol and venous sheaths placed. Esophagus intubated, circa catheter for temperature monitoring an endoscope for possible esophageal deflection. Phrenic nerve monitoring performed. Esophageal temperature monitoring p erformed. Esophageal deflection performed if circa catheter overlapping with the balloon or circa temperature less than 27.5°C Intracardiac echocardiography performed. Pericardium evaluated. Left atrial appendage evaluated. Left atrium evaluated along with pulmonary veins Transseptal catheterization performed under fluoroscopic guidance and intracardiac echo guidance Cryoablation sheath exchanged, balloon catheter along with achieve catheter placed in the left atrium. Pulmonary veins isolated in the following sequence: Left superior pulmonary vein followed by left inferior pulmonary vein, followed by right inferior pulmonary vein and lastly right superior pulmonary vein. Phrenic nerve stimulation along with capture thresholds within the SVC and right superior pulmonary vein to identify the phrenic nerve proximity to the cryo- balloon. Pulmonary veins isolated and confirmed with entrance and exit block. Phrenic nerve integrity confirmed at the end of the procedure Ablation of the left atrial roof performed with sequential lesions from the left superior to the right superior pulmonary veins. Ablation of the electrograms confirmed with voltage mapping Ablation of the left atrial septum performed with cannulation of the superior branch of the right inferior or the inferior branch of the right superior vein to achieve ablation of the posterior septum of the left atrium. Ablation of electrograms confirmed with voltage map Diagnostic catheters for the high right atrium, His bundle, coronary sinus placed. LA and RA pressures recorded LA pressure: 02/07 Diagnostic EP study with coronary sinus pacing and recording Baseline measurements: Sinus cycle length 785 ms, SC interval 142 ms, QRS 105 and QT interval 380 ms AH 60 ms and HV interval 48 ms Sinus node recovery time at a pacing cycle length of 600 ms was 1192 ms AV node Wenckebach block 300 ms Venous sheaths were removed and hemostasis assured with a closure device. Patient extubated and transferred to recovery Increase procedural time During ablation of the right-sided veins, phrenic nerve stimulation was noted within the right-sided veins. The cryo balloon in close proximity to this location, during standard technique for occlusion of the vein, posing a risk to the phrenic nerve. Therefore the balloon was repositioned around the antrum in a roving fashion to isolate the vein at an extra ostial level to minimize the risk of phrenic nerve injury. The right-sided veins were completely and successfully isolated with this extra effort Very large pulmonary veins with large tributaries requiring segmental isolation to achieve antral level isolation. All 4 pulmonary veins were ablated in this manner Phrenic nerve was difficult to map and could be mapped only to a very small segment within the SVC area. This took a long time to find the exact site of phrenic nerve stimulation Multiple attempts needed for successful cryoablation isolation of the right superior pulmonary vein, thick pedicles PROCEDURES PERFORMED Diagnostic EP study CS pacing and recording Left and right transseptal catheterization Catheter the mapping of the tachycardia Intracardiac echocardiography Pulmonary vein isolation with transseptal and comprehensive EPS, [id number] Extended procedure duration Left atrial roof line, [id number] Linear ablation, left atrium, +[id number]
[2024-08-17 17:24] LABS: Glucose,Whole Blood 125 mg/dL (70-110)
[2024-08-17 17:52] LABS: Basophils # (A) 0.03 10*3/uL (0.00-0.10); Basophils % (A) 0.3 %; Eosinophils # (A) 0.03 10*3/uL (0.04-0.35); Eosinophils % (A) 0.3 %; HCT 43.6 % (39.6-50.0); HGB 15.3 g/dL (13.0-17.0); Lymphocytes # (A) 1.27 10*3/uL (0.90-5.00); Lymphocytes % (A) 10.8 %; MCH 31.9 pg (27.0-32.0); MCHC 35.1 g/dL (32.0-37.0); MCV 90.8 fL (80.0-97.0); Monocytes # (A) 0.75 10*3/uL (0.20-1.00); Monocytes % (A) 6.4 %; Neutrophils # (A) 9.58 10*3/uL (1.80-7.70); Neutrophils % (A) 81.8 %; Platelet Count 160 10*3/uL (140-440); RBC 4.80 10*6/uL (4.40-5.60); RDW 12.4 % (11.5-14.5); WBC 11.71 10*3/uL (4.50-10.00)
[2024-08-17 18:37] VITALS: RESP 16
[2024-08-17] MEDS: COLCHICINE 0.6 MG EACH PO ONE (18:39)
[2024-08-17 20:30] LABS: Glucose,Whole Blood 134 mg/dL (70-110)
[2024-08-17 20:49] VITALS: BP 126/76; PULSE 73; TEMP 97.8
[2024-08-17] MEDS: ACETAMINOPHEN IV (For NPO) 1,000 MG in EMPTY BAG 1 BAG IVPB ONE (21:11)
[2024-08-17] MEDS: LOSARTAN 50 MG TAB PO SCH (21:16)
[2024-08-17] MEDS: APIXABAN 5 MG TAB PO SCH (21:17)
[2024-08-18] MEDS ORDERED: METOPROLOL SUCCINATE (ER) 100 MG TAB.ER.24H PO SCH (09:00)
[2024-08-18] MEDS ORDERED: ATORVASTATIN 20 MG TAB PO SCH (09:00)
== END 2024-08-17 23:25 | disposition home or self-care (01) ==
LOC: CATHEP 11:00 → 6NMEDSUR 15:10 → CATHEP 23:25 → 6NMEDSUR 08-18 01:39
PROVIDERS: ATTEND Internal Medicine Clinical Cardiac Electrophysiology
DX: I48.19 Other persistent atrial fibrillation (principal); I42.2 Other hypertrophic cardiomyopathy; I11.9 Hypertensive heart disease without heart failure; I49.3 Ventricular premature depolarization; E11.9 Type 2 diabetes mellitus without complications; F17.210 Nicotine dependence, cigarettes, uncomplicated; Z79.01 Long term (current) use of anticoagulants; Z79.85 Long-term (current) use of injectable non-insulin antidiabetic drugs; Z79.899 Other long term (current) drug therapy; Z95.810 Presence of automatic (implantable) cardiac defibrillator; Z82.49 Family history of ischemic heart disease and other diseases of the circulatory system; Z88.8 Allergy status to other drugs, medicaments and biological substances
CPT/HCPCS: 93656; 93657; 86900; 86901; 80048; 84443; 85025; 86850; C1759; C1894; C1769; C1760 ×2; C1730 ×2; C1731; C1733; C1766; J2250; J0330; J1644 ×3; J0690; J2405; J2003; J3010; J0131; J2704; Q9967; J2371 ×2; J1938